=== PATIENT | female | born 1980 | race Caucasian/White ===

== ENCOUNTER 2018-01-22 03:56 | Inpatient (IN) | payer OTHER ==
[2018-01-22] MEDS ORDERED: SODIUM CHLORIDE 0.9% 500 ML INFUS.BAG IV ONE (04:49)
[2018-01-22] MEDS ORDERED: morphine CARPU-JECT 2 MG/1 ML DISP.SYRIN IVPUSH ONE (04:49)
[2018-01-22] MEDS ORDERED: ONDANSETRON 4 MG/2 ML VIAL IVPUSH ONE ×3 (04:52→17:45)
--- NOTE | 2018-01-22 04:57 | PDOC ---
History of Present Illness - General Chief Complaint: Pain Stated Complaint: RUQ pain & vomiting Time Seen by Provider: 01/22/18 04:27 History Source: Patient Exam Limitations: No Limitations - History of Present Illness Initial Comments: 01/22/18 04:53 Patient is a 37 year old female with h/o renal stone, cholithiasis, anemia c/o right sided abd pain x 9 days assoc with nausea, vomiting, fever, diarrhea. Symptoms started with epigastric pain 9 days ago, colicky in nature, then 6 days ago started to have right flank pain, with hematuria and dysuria starting 4 days ago. 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 States has been having bilious vomiting. was admitted to [facility] 2 months ago for the kidney stone, uti and was found to have gallstones. Surgery cholecytstecotmy offered at the time but was delayed due to the infection. Prior admission was 6 months ago for kidney stone. States no food contact and is compliant with a diet. PMD: Dr. Zimmerman PMHX: as above PSOCHX: neg cig, drug, etoh ALL: NKDA GENERAL/CONSTITUTIONAL: [No fever or chills. No weakness. No weight change.] HEAD, EYES, EARS, NOSE AND THROAT: [No change in vision. No ear pain or discharge. No sore throat.] CARDIOVASCULAR: [No chest pain or shortness of breath.] RESPIRATORY: [No cough, wheezing, or hemoptysis.] GASTROINTESTINAL: (+) nausea, vomiting, diarrhea (-) constipation. No rectal bleeding.] GENITOURINARY: (+) dysuria, frequency, or change in urination.] MUSCULOSKELETAL: [No joint or muscle swelling or pain. No neck or back pain.] SKIN AND BREASTS: [No rash or easy bruising.] NEUROLOGIC: [No headache, vertigo, loss of consciousness, or loss of sensation.] PSYCHIATRIC: [No depression or anxiety.] ENDOCRINE: [No increased thirst. No abnormal weight change.] HEMATOLOGIC/LYMPHATIC: [No anemia, easy bleeding, or history of blood clots.] ALLERGIC/IMMUNOLOGIC: [No hives or skin allergy. No latex allergy.] GENERAL: [The patient is awake, alert, and fully oriented, in moderate distress. ] HEAD: [Normal with no signs of trauma.] EYES: [Pupils equal, round and reactive to light, extraocular movements intact, sclera anicteric, conjunctiva clear.] ENT: [Ears normal, nares patent, oropharynx clear without exudates. Moist mucous membranes.] NECK: [Normal range of motion, supple without lymphadenopathy, JVD, or masses.] LUNGS: [Breath sounds equal, clear to auscultation bilaterally. No wheezes, and no crackles.] HEART: [Regular rate and rhythm, normal S1 and S2 without murmur, rub.] ABDOMEN: [Soft, (+) tenderness to the right side abd, (+) Wiggins's, (+) McBurney 's tenderness, (+) RCVAT, normoactive bowel sounds. No guarding, no rebound. No masses.] EXTREMITIES: [Normal range of motion, no edema. No clubbing or cyanosis. No cords, erythema, or tenderness.] NEUROLOGICAL: [Cranial nerves II through XII grossly intact. Normal speech, normal gait.] PSYCH: [Normal mood, normal affect.] SKIN: [Warm, Dry, normal turgor, no rashes or lesions noted.] Past History - Past Medical History Allergies/Adverse Reactions: Allergies Allergy/AdvReac Type Severity Reaction Status Date / Time No Known Allergies Allergy Verified 01/22/18 04:27 Home Medications: Ambulatory Orders NK [No Known Home Medication] 01/22/18 COPD: No Kidney Stones: Yes Other medical history: Cholelithiasis - Suicide/Smoking/Psychosocial Hx Smoking History: Never smoked Have you smoked in the past 12 months: No Information on smoking cessation initiated: No Hx Alcohol Use: No Drug/Substance Use Hx: No *Physical Exam - Vital Signs Last Vital Signs Temp Pulse Resp BP Pulse Ox 98.4 F 105 H 22 129/92 99 01/22/18 04:25 01/22/18 04:25 01/22/18 04:25 01/22/18 04:25 01/22/18 04:25 ED Treatment Course - LABORATORY CBC & Chemistry Diagram: 01/22/18 04:57 01/22/18 04:57 - RADIOLOGY Radiology Studies Ordered: Category Date Time Status ABDOMEN & PELVIS CT W/O CONTR [CT] Stat CT Scan 01/22/18 04:49 Ordered Medical Decision Making - Medical Decision Making 01/22/18 04:53 Patient is a 37 year old female with h/o renal stone, cholithiasis, anemia c/o right sided abd pain x 9 days assoc with nausea, vomiting, fever, diarrhea. Symptoms started with epigastric pain 9 days ago, colicky in nature, then 6 days ago started to have right flank pain, with hematuria and dysuria starting 4 days ago. R/O cholecystitis, pyelonephritis, renal colic, appendicitis, labs, IVF meds, pepcid, zofran, morphine ctap with IV con reassess 01/22/18 07:15 Paitent continues to be in pain given Morphine 4mg IV will order US of the GB noted to have a UTI will given Rocephin 1 gm IV Endorsed to ALEJO Baldwin *DC/Admit/Observation/Transfer Diagnosis at time of Disposition: Abdominal pain Qualifiers: Abdominal location: unspecified location Qualified Code(s): R10.9 - Unspecified abdominal pain UTI (urinary tract infection) Qualifiers: Urinary tract infection type: acute cystitis Hematuria presence: without hematuria Qualified Code(s): N30.00 - Acute cystitis without hematuria - Discharge Dispostion Condition at time of disposition: Fair - Referrals - Patient Instructions - Post Discharge Activity
[2018-01-22] MEDS ORDERED: ONDANSETRON 4 MG/2 ML VIAL ONE ×3 (05:02→17:11)
[2018-01-22 05:10] LABS: BASO % 0.5 % (0-2.0); EOS % 0.7 % (0-4.5); HEMATOCRIT 35.8 % (32.4-45.2); HEMOGLOBIN 12.1 GM/dL (10.7-15.3); LYMPH % 18.4 % (8-40); MCH 28.5 pg (25.7-33.7); MCHC 33.8 g/dl (32.0-36.0); MEAN CELL VOLUME 84.5 fl (80-96); MEAN PLT VOLUME 7.6 fl (7.5-11.1); MONO % 5.5 % (3.8-10.2); NEUT % 74.9 % (42.8-82.8); PLATELET COUNT 394 K/MM3 (134-434); RBC 4.23 M/mm3 (3.60-5.2); RDW 15.5 % (11.6-15.6); WHITE BLOOD COUNT 9.5 K/mm3 (4.0-10.0)
[2018-01-22] MEDS ORDERED: FAMOTIDINE 20 MG/50 ML IVPB 20 MG/50 ML MG IVPB ONE ×2 (05:10→05:22)
[2018-01-22] MEDS ORDERED: MORPHINE SULFATE 10 MG/1 ML *VIAL ONE ×2 (05:17→06:39)
[2018-01-22 05:29] LABS: ALBUMIN 4.3 g/dl (3.4-5.0); ALK PHOS 91 U/L (45-117); ANION GAP 9 (8-16); BILIRUBIN,TOTAL 0.9 mg/dL (0.2-1.0); BLOOD UREA NITROGEN 14 mg/dL (7-18); CALCIUM 9.8 mg/dL (8.5-10.1); CHLORIDE 102 mmol/L (98-107); CO2 24 mmol/L (21-32); CREATININE 0.9 mg/dL (0.55-1.02); GLUCOSE,RANDOM 99 mg/dL (74-106); POTASSIUM 3.8 mmol/L (3.5-5.1); SGOT/AST 15 U/L (15-37); SGPT/ALT 20 U/L (12-78); SODIUM 135 mmol/L (136-145); TOT PROT 8.3 g/dl (6.4-8.2)
[2018-01-22] MEDS ORDERED: morphine CARPU-JECT 4 MG/1 ML DISP.SYRIN IVPUSH ONE ×2 (06:38→11:12)
[2018-01-22 06:52] LABS: URINE APPEARANCE CLOUDY; URINE BILIRUBIN NEGATIVE (<2.0 mg/dL); URINE COLOR RED; URINE GLUCOSE (UA) NEGATIVE (NEGATIVE); URINE KETONE TRACE (NEGATIVE); URINE NITRITE NEGATIVE (NEGATIVE); URINE UROBILINOGEN NEGATIVE mg/dL (0.2-1.0)
[2018-01-22 07:03] LABS: URINE LEUK ESTERASE 2+ (NEGATIVE); URINE PROTEIN 2+ (NEGATIVE)
[2018-01-22 07:04] LABS: EPI CELLS MANY /HPF (FEW); URINE BACTERIA RARE /hpf (NONE SEEN); URINE MUCUS RARE
[2018-01-22] MEDS ORDERED: CEFTRIAXONE 1,000 MG in DEXTROSE 5%-WATER - 50 ML IVPB ONE (07:17)
--- NOTE | 2018-01-22 07:23 | PDOC ---
*Physical Exam - Vital Signs Last Vital Signs Temp Pulse Resp BP Pulse Ox 98.4 F 105 H 22 129/92 99 01/22/18 04:25 01/22/18 04:25 01/22/18 04:25 01/22/18 04:25 01/22/18 04:25 - Physical Exam General Appearance: Yes: Nourished, Appropriately Dressed, Mild Distress ( states her stomach hurts.) Respiratory/Chest: positive: Lungs Clear, Normal Breath Sounds. negative: Respiratory Distress, Rhonchi, Stridor, Wheezing Cardiovascular: positive: Regular Rhythm, Regular Rate, S1, S2 (present). 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, Fully Oriented, Alert, Normal Mood/ Affect, Normal Response, Motor Strength 11/04 ED Treatment Course - LABORATORY CBC & Chemistry Diagram: 01/22/18 04:57 01/22/18 04:57 - ADDITIONAL ORDERS Additional order review: Laboratory Results 01/22/18 01/22/18 01/22/18 06:34 05:54 04:57 Sodium 135 L Potassium 3.8 Chloride 102 Carbon Dioxide 24 Anion Gap 9 BUN 14 Creatinine 0.9 Creat Clearance w eGFR > 60 Random Glucose 99 Calcium 9.8 Total Bilirubin 0.9 AST 15 ALT 20 Alkaline Phosphatase 91 Total Protein 8.3 H Albumin 4.3 Serum , Qual Negative Urine Color Red Urine Appearance Cloudy Urine pH 6.0 Ur Specific [place] 1.006 Urine Protein 2+ H Urine Glucose (UA) Negative Urine Ketones Trace H Urine Blood 3+ H Urine Nitrite Negative Urine Bilirubin Negative Urine Urobilinogen Negative Ur Leukocyte Esterase 2+ H Urine WBC (Auto) 37 Urine RBC (Auto) 509 Ur Epithelial Cells Many Urine Bacteria Rare Urine Mucus Rare 01/22/18 04:57 RBC 4.23 MCV 84.5 MCHC 33.8 RDW 15.5 MPV 7.6 Neutrophils % 74.9 Lymphocytes % 18.4 Monocytes % 5.5 Eosinophils % 0.7 Basophils % 0.5 - Medications Given in the ED: ED Medications Discontinued Medications Generic Name Dose Route Start Last Admin Trade Name Freq PRN Reason Stop Dose Admin Famotidine/Sodium Chloride 20 mg in 50 mls @ 100 mls/hr 01/22/18 05:10 05:15 Pepcid 20 Mg Premixed Ivpb - IVPB 01/22/18 05:39 100 mls/hr ONCE ONE Administration Morphine Sulfate 2 mg 01/22/18 04:49 01/22/18 05:14 Morphine Injection - IVPUSH 01/22/18 04:50 2 mg ONCE ONE Administration Morphine Sulfate 4 mg 01/22/18 06:38 01/22/18 06:50 Morphine Injection - IVPUSH 01/22/18 06:39 4 mg ONCE ONE Administration Ondansetron HCl 4 mg 01/22/18 04:52 01/22/18 04:45 Zofran Injection IVPUSH 01/22/18 04:53 4 mg ONCE ONE Administration Sodium Chloride 1,000 ml 01/22/18 04:49 01/22/18 04:58 Normal Saline - IV 01/22/18 04:50 1,000 ml ONCE ONE Administration Medical Decision Making - Medical Decision Making 01/22/18 07:22 Pt received at sign out from ALEJO Hernández. Pt currently in CT scan. Will evaluate when patient returns. 01/22/18 12:25 Patient evaluated for her right upper quadrant/epigastric pain. Her CT scan shows no evidence of kidney stones at this time. Ultrasound shows multiple stones however without evidence of cholecystitis. Patient currently with intractable abdominal pain. Patient received 2 doses of morphine as well as Toradol without relief of her symptoms. She is still vomiting in the emergency department. Pt. also with UTI, 2+ leukocytes with 35 WBCs as well as blood. Consult with Dr. Corbin for surgery. Agrees that patient needs to have her gallbladder taken out however she needs to be treated for her UTI first. She received 1 dose of Rocephin in the emergency department. Consulted with Dr. Garces for admission. Will accept the patient for IV antibiotics pending surgery. Consult placed to Dr. Adames. *DC/Admit/Observation/Transfer Diagnosis at time of Disposition: Biliary colic UTI (urinary tract infection) Qualifiers: Urinary tract infection type: acute cystitis Hematuria presence: without hematuria Qualified Code(s): N30.00 - Acute cystitis without hematuria - Discharge Dispostion Condition at time of disposition: Fair Decision to Admit order: Yes - Referrals - Patient Instructions - Post Discharge Activity
[2018-01-22] MEDS ORDERED: CEFTRIAXONE 1 GM/50 ML BAG ONE (07:56)
[2018-01-22] MEDS ORDERED: KETOROLAC TROMETHAMINE 30 MG/1 ML VIAL ONE (08:09)
[2018-01-22] MEDS ORDERED: KETOROLAC TROMETHAMINE 30 MG/1 ML VIAL IVPUSH ONE (08:14)
[2018-01-22] MEDS ORDERED: SODIUM CHLORIDE 1,000 ML IV STA (11:11)
[2018-01-22] MEDS ORDERED: METOCLOPRAMIDE HCL INJECTION 10 MG/2 ML VIAL IVPB ONE (11:11)
--- NOTE | 2018-01-22 11:54 | CONSULT ---
Consult Consult Specialty:: General Surgery Referred by:: Erika Casanova- ED Reason for Consultation:: Abdominal Pain - History of Present Illness Chief Complaint: Abdominal Pain History of Present Illness: 37yo female PMH obesity, cholelithiasis, history of nephrolithiasis and UTI requiring hospitalization presented this morning with complaints of right upper quadrant abdominal pain for 3 days. She reports that the pain is crampy, after meals, she has has episodes of emesis and diarrhea. She also reports qualitiative fevers at home. She recognized some burning with urination for the past several days as well. She was previously seen at [facility] during a previous episode of billiary colic. She has a know history of cholelithiasis and was offered surgery earlier this year. She had cholelithiasis +dasilva on RUQ sonogram, We were asked to assess. - History Source History Provided By: Patient, Medical Record Limitations to Obtaining History: No Limitations - Past Medical History Hepatobiliary: Yes: Cholelithiasis Renal/: Yes: Renal Calculi, UTI ...: No Additional Medical History: obesity - Alcohol/Substance Use Hx Alcohol Use: No History of Substance Use: reports: None - Smoking History Smoking history: Never smoked Have you smoked in the past 12 months: No - Social History Place of : [facility] History of Recent Travel: Yes Home Medications - Allergies Allergies/Adverse Reactions: Allergies Allergy/AdvReac Type Severity Reaction Status Date / Time No Known Allergies Allergy Verified 01/22/18 04:27 - Home Medications Home Medications: Ambulatory Orders NK [No Known Home Medication] 01/22/18 Review of Systems - Review of Systems Constitutional: reports: Fever. denies: Chills Eyes: denies: Blurred Vision, Recent Change in Vision HENT: denies: Difficult Swallowing, Throat Pain Neck: reports: Pain on Movement. denies: Tenderness Cardiovascular: denies: Chest Pain, Palpitations Respiratory: denies: Cough, SOB Gastrointestinal: reports: Abdominal Pain, Diarrhea, Indigestion, Vomiting Genitourinary: reports: Burning, Dysuria. denies: Discharge, Flank Pain Breasts: reports: No Symptoms Reported. denies: Pain Integumentary: denies: Erythema, Incision, Lesions Neurological: denies: Confusion, Dizziness, Seizure, Syncope Endocrine: denies: Unexplained Weight Gain, Unexplained Weight Loss Hematology/Lymphatic: denies: Easily Bruised, Excessive Bleeding Psychiatric: denies: Anxiety, Depression Physical Exam Vital Signs: Vital Signs Temperature 98.0 F 01/22/18 09:01 Pulse Rate 98 H 01/22/18 09:01 Respiratory Rate 18 01/22/18 09:01 Blood Pressure 114/76 01/22/18 09:01 O2 Sat by Pulse Oximetry (%) 100 01/22/18 09:01 Vital Signs Period Temp Pulse Resp BP Sys/Jorgensen Pulse Ox Last 24 Hr 98.0 F-98.4 F 98-105 18- 114-129/76-92 99-100 Constitutional: Yes: Well Nourished, No Distress, Calm, Obese Eyes: Yes: Conjunctiva Clear, EOM Intact HENT: Yes: Atraumatic, Normocephalic Neck: Yes: Supple, Trachea Midline Cardiovascular: Yes: Regular Rate and Rhythm, S1, S2 Respiratory: Yes: Regular, CTA Bilaterally. No: Rales, Rhonchi Gastrointestinal: Yes: Normal Bowel Sounds, Soft, Abdomen, Obese, Tenderness ( RUQ,), Tenderness, Epigastrium. No: Ascites, Distention, Tenderness, Rebound, Vomiting ...Rectal Exam: Yes: Deferred Renal/: No: CVA Tenderness - Left, CVA Tenderness - Right Musculoskeletal: No: Muscle Pain, Muscle Weakness Extremities: No: Cool, Cyanosis Edema: No Integumentary: No: Incision, Jaundice Neurological: Yes: Alert, Oriented Psychiatric: Yes: Alert, Oriented Labs: CBC, BMP 01/22/18 04:57 01/22/18 04:57 Imaging - Results Cat Scan: Report Reviewed (no acute findings, cholelithiasis), Image Reviewed Ultrasound: Report Reviewed (CBD 0.25cm, GB wall 1.39mmm cholelithiasis), Image Reviewed Problem List - Problems (1) Recurrent biliary colic Assessment/Plan: 37yo female PMH obesity, cholelithiasis, history of nephrolithiasis presents with symptomatic UTI and recurrent billiary colic. We discussed proceeding with surgery once the UTI was adequately treated for 3 days. She agrees with this plan. We will discuss risksm benefits and alternatives and obtain informed consent in the coming days. NPO and IVF hydration ID consult - Erika Adames IV antibiotics adequate analgesia Consider GI evaluation Plan for laparoscopic cholecystectomy (tentatively 01/25) will follow Thank you for the opportunity to participate in the care of this patient. Code(s): K80.50 - CALCULUS OF BILE DUCT W/O CHOLANGITIS OR CHOLECYST W/O OBST (2) Abdominal pain in female patient Code(s): R10.9 - UNSPECIFIED ABDOMINAL PAIN (3) UTI (urinary tract infection) Code(s): N39.0 - URINARY TRACT INFECTION, SITE NOT SPECIFIED Qualifiers: Urinary tract infection type: acute cystitis Hematuria presence: without hematuria Qualified Code(s): N30.00 - Acute cystitis without hematuria (4) Obesity (BMI 30.0-34.9) Code(s): E66.9 - OBESITY, UNSPECIFIED (5) History of nephrolithiasis Code(s): Z87.442 - PERSONAL HISTORY OF URINARY CALCULI
[2018-01-22] MEDS ORDERED: morphine SULFATE 4 MG/ML VIAL ONE (12:32)
[2018-01-22] MEDS ORDERED: METOCLOPRAMIDE HCL INJECTION 10 MG/2 ML VIAL ONE (12:32)
--- NOTE | 2018-01-22 16:27 | CON.ID ---
Consult Consult Specialty:: infectious diseases Reason for Consultation:: uti,choleycystitis - History of Present Illness Chief Complaint: abd pain,burning in urine,multiple utis History of Present Illness: 37yo female PMH obesity, cholelithiasis, history of nephrolithiasis and UTI requiring hospitalization presented with complaints of right upper quadrant abdominal pain for 3 days. She reports that the pain is crampy, after meals, she has has episodes of emesis and diarrhea. patient mentions that this type of pain she had also last year.and was seen and [facility] not [facility] also she mentions that she has ahd multiple episodes of uti and also has burning in the urine now patient now is having ruq pain as well as suprapubic pain and it seems she had murphys sign positive patient says she had subjective fevers - History Source History Provided By: Patient Limitations to Obtaining History: No Limitations - Past Medical History Hepatobiliary: Yes: Cholelithiasis Renal/: Yes: Renal Calculi, UTI ...: No Additional Medical History: obesity - Alcohol/Substance Use Hx Alcohol Use: No History of Substance Use: reports: None - Smoking History Smoking history: Never smoked Have you smoked in the past 12 months: No - Social History History of Recent Travel: Yes Home Medications - Allergies Allergies/Adverse Reactions: Allergies Allergy/AdvReac Type Severity Reaction Status Date / Time No Known Allergies Allergy Verified 01/22/18 04:27 - Home Medications Home Medications: Ambulatory Orders NK [No Known Home Medication] 01/22/18 Review of Systems - Review of Systems Constitutional: reports: No Symptoms Eyes: reports: No Symptoms HENT: reports: No Symptoms Neck: reports: No Symptoms Cardiovascular: reports: No Symptoms Respiratory: reports: No Symptoms Gastrointestinal: reports: Abdominal Pain Genitourinary: reports: Burning, Dysuria Musculoskeletal: reports: No Symptoms Integumentary: reports: No Symptoms Neurological: reports: No Symptoms Endocrine: reports: No Symptoms Hematology/Lymphatic: reports: No Symptoms Psychiatric: reports: No Symptoms Physical Exam Vital Signs: Vital Signs Temperature 98.2 F 01/22/18 15:21 Pulse Rate 77 01/22/18 15:21 Respiratory Rate 20 01/22/18 15:21 Blood Pressure 116/59 01/22/18 15:21 O2 Sat by Pulse Oximetry (%) 100 01/22/18 09:01 Constitutional: Yes: Well Nourished, Calm, Mild Distress Neck: Yes: Supple, Trachea Midline Cardiovascular: Yes: Regular Rate and Rhythm Respiratory: Yes: Regular, CTA Bilaterally Gastrointestinal: Yes: Normal Bowel Sounds, Soft, Other (ruq tenderness) Musculoskeletal: Yes: WNL Extremities: Yes: WNL Neurological: Yes: Alert, Oriented Psychiatric: Yes: Alert, Oriented Labs: CBC, BMP 01/22/18 04:57 01/22/18 04:57 Imaging - Results Cat Scan: Report Reviewed, Image Reviewed Ultrasound: Report Reviewed, Image Reviewed Assessment/Plan Problem List - Problems (1) Recurrent biliary colic Thank you for the opportunity to participate in the care of this patient. Code(s): K80.50 - CALCULUS OF BILE DUCT W/O CHOLANGITIS OR CHOLECYST W/O OBST (2) Abdominal pain in female patient Code(s): R10.9 - UNSPECIFIED ABDOMINAL PAIN (3) UTI (urinary tract infection) Code(s): N39.0 - URINARY TRACT INFECTION, SITE NOT SPECIFIED Qualifiers: Urinary tract infection type: acute cystitis Hematuria presence: without hematuria Qualified Code(s): N30.00 - Acute cystitis without hematuria (4) Obesity (BMI 30.0-34.9) Code(s): E66.9 - OBESITY, UNSPECIFIED (5) History of nephrolithiasis Code(s): Z87.442 - PERSONAL HISTORY OF URINARY CALCULI plan will start patient on zosyn await for cx reports rest as per the team patient stable
[2018-01-22] MEDS ORDERED: MORPHINE SULFATE 2 MG/ML VIAL ONE (17:11)
[2018-01-22] MEDS ORDERED: MORPHINE SULFATE 2 MG/ML VIAL IVPUSH ONE (17:45)
[2018-01-22] MEDS: PIPERACILLIN/TAZOB 3.375 GM 3.375 GM in DEXTROSE 5%-WATER - 50 ML IVPB SCH (17:50)
[2018-01-22 19:07] VITALS: BMI 31.2
--- NOTE | 2018-01-22 19:24 | HP ---
Admitting History and Physical - Primary Care Physician PCP: Zoe Garces - Admission History of Present Illness: 37 year old female with h/o renal stone, cholithiasis, anemia c/o right sided abd pain x 9 days assoc with nausea, vomiting, fever, diarrhea. Symptoms started with epigastric pain 9 days ago, colicky in nature, then 6 days ago started to have right flank pain, with hematuria and dysuria starting 4 days ago. 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 States has been having bilious vomiting. States was admitted to [facility] 2 months ago for the kidney stone, uti and was found to have gallstones. Surgery cholecytstecotmy offered at the time but was delayed due to the infection. Prior admission was 6 months ago for kidney stone. States no food contact and is compliant with a diet. - Past Medical History Hepatobiliary: Yes: Cholelithiasis Renal/: Yes: Renal Calculi, UTI ...LMP: 01/09/18 ...: No - Smoking History Smoking history: Never smoked Have you smoked in the past 12 months: No - Alcohol/Substance Use Hx Alcohol Use: No History of Substance Use: reports: None - Social History History of Recent Travel: Yes Home Medications - Allergies Allergies/Adverse Reactions: Allergies Allergy/AdvReac Type Severity Reaction Status Date / Time No Known Allergies Allergy Verified 01/22/18 04:27 - Home Medications Home Medications: Ambulatory Orders NK [No Known Home Medication] 01/22/18 Review of Systems - Review of Systems Gastrointestinal: reports: Other (ruq pain) Physical Examination Vital Signs: Vital Signs Temperature 97.6 F 01/22/18 19:00 Pulse Rate 105 H 01/22/18 19:00 Respiratory Rate 18 01/22/18 19:00 Blood Pressure 112/66 01/22/18 19:00 O2 Sat by Pulse Oximetry (%) 100 01/22/18 09:01 Constitutional: Yes: No Distress HENT: Yes: Atraumatic Neck: Yes: Supple Cardiovascular: Yes: Regular Rate and Rhythm Respiratory: Yes: CTA Bilaterally Gastrointestinal: Yes: Tenderness (ruq) Extremities: Yes: WNL Neurological: Yes: Alert, Oriented Labs: CBC, BMP 01/22/18 04:57 01/22/18 04:57 Imaging - Results Cat Scan: Report Reviewed Problem List - Problems (1) Cholelithiasis Assessment/Plan: us and ct done no acute arlyn Code(s): K80.20 - CALCULUS OF GALLBLADDER W/O CHOLECYSTITIS W/O OBSTRUCTION (2) Recurrent biliary colic Assessment/Plan: prn pain meds Code(s): K80.50 - CALCULUS OF BILE DUCT W/O CHOLANGITIS OR CHOLECYST W/O OBST (3) UTI (urinary tract infection) Assessment/Plan: on iv abx ucx Code(s): N39.0 - URINARY TRACT INFECTION, SITE NOT SPECIFIED Qualifiers: Urinary tract infection type: acute cystitis Hematuria presence: without hematuria Qualified Code(s): N30.00 - Acute cystitis without hematuria Assessment/Plan Laboratory Tests 01/22/18 01/22/18 01/22/18 04:57 04:57 05:54 WBC 9.5 RBC 4.23 Hgb 12.1 Hct 35.8 MCV 84.5 MCH 28.5 MCHC 33.8 RDW 15.5 Plt Count 394 MPV 7.6 Absolute Neuts (auto) 7.1 Neutrophils % 74.9 Lymphocytes % 18.4 Monocytes % 5.5 Eosinophils % 0.7 Basophils % 0.5 Nucleated RBC % 0 Sodium 135 L Potassium 3.8 Chloride 102 Carbon Dioxide 24 Anion Gap 9 BUN 14 Creatinine 0.9 Creat Clearance w eGFR > 60 Random Glucose 99 Calcium 9.8 Total Bilirubin 0.9 AST 15 ALT 20 Alkaline Phosphatase 91 Total Protein 8.3 H Albumin 4.3 Serum , Qual Negative Urine Color Urine Appearance Urine pH Ur Specific [place] Urine Protein Urine Glucose (UA) Urine Ketones Urine Blood Urine Nitrite Urine Bilirubin Urine Urobilinogen Ur Leukocyte Esterase Urine WBC (Auto) Urine RBC (Auto) Ur Epithelial Cells Urine Bacteria Urine Mucus 01/22/18 06:34 WBC RBC Hgb Hct MCV MCH MCHC RDW Plt Count MPV Absolute Neuts (auto) Neutrophils % Lymphocytes % Monocytes % Eosinophils % Basophils % Nucleated RBC % Sodium Potassium Chloride Carbon Dioxide Anion Gap BUN Creatinine Creat Clearance w eGFR Random Glucose Calcium Total Bilirubin AST ALT Alkaline Phosphatase Total Protein Albumin Serum , Qual Urine Color Red Urine Appearance Cloudy Urine pH 6.0 Ur Specific [place] 1.006 Urine Protein 2+ H Urine Glucose (UA) Negative Urine Ketones Trace H Urine Blood 3+ H Urine Nitrite Negative Urine Bilirubin Negative Urine Urobilinogen Negative Ur Leukocyte Esterase 2+ H Urine WBC (Auto) 37 Urine RBC (Auto) 509 Ur Epithelial Cells Many Urine Bacteria Rare Urine Mucus Rare Active Medications Generic Name Dose Route Start Last Admin Trade Name Sofi PRN Reason Stop Dose Admin Piperacillin Sod/Tazobactam 50 mls @ 100 mls/hr 01/22/18 18:00 01/22/18 17:50 Sod 3.375 gm/ Dextrose IVPB 100 mls/hr Q8H-IV JUDITH Administration Protocol Active Medications Generic Name Dose Route Start Last Admin Trade Name Sofi PRN Reason Stop Dose Admin Acetaminophen 650 mg 01/23/18 16:16 01/23/18 16:50 Tylenol - PO 650 mg Q6H PRN Administration PAIN LEVEL 1-5 Piperacillin Sod/Tazobactam 50 mls @ 100 mls/hr 01/22/18 18:00 01/23/18 18:27 Sod 3.375 gm/ Dextrose IVPB 100 mls/hr Q8H-IV JUDITH Administration Protocol Sodium Chloride 1,000 mls @ 75 mls/hr 01/22/18 19:30 01/23/18 08:33 Normal Saline - IV 75 mls/hr ASDIR JUDITH Administration Morphine Sulfate 2 mg 01/22/18 19:27 01/23/18 15:04 Morphine Sulfate IVPUSH 2 mg Q4H PRN Administration PAIN LEVEL 4 - 6 Ondansetron HCl 4 mg 01/22/18 19:27 01/23/18 15:06 Zofran Injection IVPB 4 mg Q4H PRN Administration NAUSEA AND/OR VOMITING
[2018-01-22] MEDS: ONDANSETRON 4 MG/2 ML VIAL IVPB PRN (20:33)
[2018-01-22] MEDS: SODIUM CHLORIDE 1,000 ML IV SCH (20:33)
[2018-01-22] MEDS: morphine SULFATE 4 MG/ML VIAL IVPUSH PRN (20:33)
[2018-01-23] MEDS ORDERED: PIPERACILLIN/TAZOBACTAM 3.375 GM VIAL IVPB ONE ×3 (02:27→18:09)
[2018-01-23] MEDS ORDERED: DEXTROSE 5%-WATER - 50 ML IVPB ONE ×3 (02:27→18:09)
[2018-01-23] MEDS: PIPERACILLIN/TAZOB 3.375 GM 3.375 GM in DEXTROSE 5%-WATER - 50 ML IVPB SCH ×3 (02:36→18:27)
[2018-01-23] MEDS: morphine SULFATE 4 MG/ML VIAL IVPUSH PRN ×4 (02:55→19:25)
[2018-01-23] MEDS: ONDANSETRON 4 MG/2 ML VIAL IVPB PRN ×3 (08:25→19:26)
--- NOTE | 2018-01-23 08:28 | PN ---
Progress Note, Physician Chief Complaint: abdominal pain History of Present Illness: 37yo female PMH obesity, cholelithiasis, history of nephrolithiasis and UTI requiring hospitalization presented this morning with complaints of right upper quadrant abdominal pain for 3 days. Her abdominal pain is - Current Medication List Current Medications: Active Medications Piperacillin Sod/Tazobactam (Sod 3.375 gm/ Dextrose) 50 mls @ 100 mls/hr IVPB Q8H-IV JUDITH; Protocol Last Admin: 01/23/18 02:36 Dose: 100 mls/hr Sodium Chloride (Normal Saline -) 1,000 mls @ 75 mls/hr IV ASDIR JUDITH Last Admin: 01/22/18 20:33 Dose: 75 mls/hr Morphine Sulfate (Morphine Sulfate) 2 mg IVPUSH Q4H PRN PRN Reason: PAIN LEVEL 4 - 6 Last Admin: 01/23/18 02:55 Dose: 2 mg Ondansetron HCl (Zofran Injection) 4 mg IVPB Q4H PRN PRN Reason: NAUSEA AND/OR VOMITING Last Admin: 01/22/18 20:33 Dose: 4 mg - Objective Vital Signs: Vital Signs Temperature 98.2 F 01/23/18 06:00 Pulse Rate 74 01/23/18 06:00 Respiratory Rate 18 01/23/18 06:00 Blood Pressure 142/77 01/23/18 06:00 O2 Sat by Pulse Oximetry (%) 100 01/22/18 22:13 Vital Signs Period Temp Pulse Resp BP Sys/Jorgensen Pulse Ox Last 24 Hr 97.6 F-98.6 F 63-105 18-20 112-142/58-77 100-100 Constitutional: Yes: Well Nourished, No Distress, Calm, Obese Eyes: Yes: Conjunctiva Clear, EOM Intact HENT: Yes: Atraumatic, Normocephalic Neck: Yes: Supple, Trachea Midline Cardiovascular: Yes: Regular Rate and Rhythm, S1, S2 Respiratory: Yes: Regular, CTA Bilaterally Gastrointestinal: Yes: Normal Bowel Sounds, Soft, Abdomen, Obese, Tenderness ( minimal RUQ tenderness, - dasilva's) ...Rectal Exam: Yes: Deferred Genitourinary: No: CVA Tenderness - Left, CVA Tenderness - Right Musculoskeletal: No: Muscle Pain, Muscle Weakness Extremities: No: Cool, Cyanosis Integumentary: No: Jaundice Neurological: Yes: Alert, Oriented Psychiatric: Yes: Alert, Oriented Labs: CBC, BMP 01/22/18 04:57 01/22/18 04:57 Problem List - Problems (1) Recurrent biliary colic Assessment/Plan: 37yo female PMH obesity, cholelithiasis, history of nephrolithiasis presents with symptomatic UTI and recurrent billiary colic. We discussed proceeding with surgery once the UTI was adequately treated for 3 days. She agrees with this plan. We discussed risks, benefits and alternatives and obtain informed consent. NPO and IVF hydration IV antibiotics Plan for laparoscopic cholecystectomy (tentatively 01/25 @ 330p) when cleared by Dr. Adames Discussed with patient risks, benefits and alternatives of laparoscopic possible open cholecystectomy, including but not limited to bleeding, infection , injury to adjacent structures, leak or injury, intraabdominal abscess, need for further procedures, ; alternatives include antibiotics, delayed or no surgery - risks of this include failure of nonoperative therapy, perforation, sepsis, recurrence, . Patient desires to proceed with operation - will take to OR for above. Informed consent signed for same. Code(s): K80.50 - CALCULUS OF BILE DUCT W/O CHOLANGITIS OR CHOLECYST W/O OBST (2) Abdominal pain in female patient Code(s): R10.9 - UNSPECIFIED ABDOMINAL PAIN (3) UTI (urinary tract infection) Code(s): N39.0 - URINARY TRACT INFECTION, SITE NOT SPECIFIED Qualifiers: Urinary tract infection type: acute cystitis Hematuria presence: without hematuria Qualified Code(s): N30.00 - Acute cystitis without hematuria (4) Obesity (BMI 30.0-34.9) Code(s): E66.9 - OBESITY, UNSPECIFIED (5) History of nephrolithiasis Code(s): Z87.442 - PERSONAL HISTORY OF URINARY CALCULI
[2018-01-23] MEDS: SODIUM CHLORIDE 1,000 ML IV SCH (08:33)
--- NOTE | 2018-01-23 12:26 | PN ---
Progress Note, Physician History of Present Illness: patient stable no new issues still with abd discomfort - Current Medication List Current Medications: Active Medications Piperacillin Sod/Tazobactam (Sod 3.375 gm/ Dextrose) 50 mls @ 100 mls/hr IVPB Q8H-IV JUDITH; Protocol Last Admin: 01/23/18 11:12 Dose: 100 mls/hr Sodium Chloride (Normal Saline -) 1,000 mls @ 75 mls/hr IV ASDIR JUDITH Last Admin: 01/23/18 08:33 Dose: 75 mls/hr Morphine Sulfate (Morphine Sulfate) 2 mg IVPUSH Q4H PRN PRN Reason: PAIN LEVEL 4 - 6 Last Admin: 01/23/18 08:32 Dose: 2 mg Ondansetron HCl (Zofran Injection) 4 mg IVPB Q4H PRN PRN Reason: NAUSEA AND/OR VOMITING Last Admin: 01/23/18 08:25 Dose: 4 mg - Objective Vital Signs: Vital Signs Temperature 98.1 F 01/23/18 09:00 Pulse Rate 68 01/23/18 09:00 Respiratory Rate 18 01/23/18 09:00 Blood Pressure 122/95 01/23/18 09:00 O2 Sat by Pulse Oximetry (%) 100 01/22/18 22:13 Constitutional: Yes: No Distress, Calm Cardiovascular: Yes: Regular Rate and Rhythm Respiratory: Yes: Regular, CTA Bilaterally Gastrointestinal: Yes: Normal Bowel Sounds, Soft Musculoskeletal: Yes: WNL Extremities: Yes: WNL Neurological: Yes: Alert, Oriented Psychiatric: Yes: Alert, Oriented Labs: CBC, BMP 01/22/18 04:57 01/22/18 04:57 Assessment/Plan Problem List - Problems (1) Recurrent biliary colic Thank you for the opportunity to participate in the care of this patient. Code(s): K80.50 - CALCULUS OF BILE DUCT W/O CHOLANGITIS OR CHOLECYST W/O OBST (2) Abdominal pain in female patient Code(s): R10.9 - UNSPECIFIED ABDOMINAL PAIN (3) UTI (urinary tract infection) Code(s): N39.0 - URINARY TRACT INFECTION, SITE NOT SPECIFIED Qualifiers: Urinary tract infection type: acute cystitis Hematuria presence: without hematuria Qualified Code(s): N30.00 - Acute cystitis without hematuria (4) Obesity (BMI 30.0-34.9) Code(s): E66.9 - OBESITY, UNSPECIFIED (5) History of nephrolithiasis Code(s): Z87.442 - PERSONAL HISTORY OF URINARY CALCULI plan continue abx will d.w surgery cx report noted rest as per the team
[2018-01-23 14:14] VITALS: TEMP 97.8
[2018-01-23] MEDS ORDERED: ACETAMINOPHEN 325 MG TABLET (FP) PO PRN (16:16)
--- NOTE | 2018-01-23 16:47 | PN ---
Progress Note, Physician - Current Medication List Current Medications: Active Medications Acetaminophen (Tylenol -) 650 mg PO Q6H PRN PRN Reason: PAIN LEVEL 1-5 Piperacillin Sod/Tazobactam (Sod 3.375 gm/ Dextrose) 50 mls @ 100 mls/hr IVPB Q8H-IV JUDITH; Protocol Last Admin: 01/23/18 11:12 Dose: 100 mls/hr Sodium Chloride (Normal Saline -) 1,000 mls @ 75 mls/hr IV ASDIR JUDITH Last Admin: 01/23/18 08:33 Dose: 75 mls/hr Morphine Sulfate (Morphine Sulfate) 2 mg IVPUSH Q4H PRN PRN Reason: PAIN LEVEL 4 - 6 Last Admin: 01/23/18 15:04 Dose: 2 mg Ondansetron HCl (Zofran Injection) 4 mg IVPB Q4H PRN PRN Reason: NAUSEA AND/OR VOMITING Last Admin: 01/23/18 15:06 Dose: 4 mg - Objective Vital Signs: Vital Signs Temperature 97.8 F 01/23/18 14:12 Pulse Rate 61 01/23/18 14:12 Respiratory Rate 18 01/23/18 14:12 Blood Pressure 125/61 01/23/18 14:12 O2 Sat by Pulse Oximetry (%) 100 01/22/18 22:13 Constitutional: Yes: No Distress HENT: Yes: Atraumatic Neck: Yes: Supple Cardiovascular: Yes: Regular Rate and Rhythm Respiratory: Yes: CTA Bilaterally Gastrointestinal: Yes: Normal Bowel Sounds Extremities: Yes: WNL Neurological: Yes: Alert, Oriented Labs: CBC, BMP 01/22/18 04:57 01/22/18 04:57 Problem List - Problems (1) Cholelithiasis Assessment/Plan: us and ct done no acute arlyn Code(s): K80.20 - CALCULUS OF GALLBLADDER W/O CHOLECYSTITIS W/O OBSTRUCTION (2) Recurrent biliary colic Assessment/Plan: prn pain meds Code(s): K80.50 - CALCULUS OF BILE DUCT W/O CHOLANGITIS OR CHOLECYST W/O OBST (3) UTI (urinary tract infection) Assessment/Plan: on iv abx ucx...negative Code(s): N39.0 - URINARY TRACT INFECTION, SITE NOT SPECIFIED Qualifiers: Urinary tract infection type: acute cystitis Hematuria presence: without hematuria Qualified Code(s): N30.00 - Acute cystitis without hematuria
[2018-01-23 16:50] VITALS: BP 125/69; PULSE 68
== END 2018-01-24 00:33 | disposition left against medical advice (07) ==
LOC: JER 03:56 → JERBED 11:58 → J8W 18:24
PROVIDERS: ADMIT Internal Medicine; ATTEND Internal Medicine
DX: K80.50 Calculus of bile duct without cholangitis or cholecystitis without obstruction (principal); N39.0 Urinary tract infection, site not specified; E66.8 Other obesity; Z68.30 Body mass index [BMI] 30.0-30.9, adult; Z87.442 Personal history of urinary calculi
CPT/HCPCS: 36415; 74177-TC; 76700-TC; 80053; 81003; 81015; 84703; 85025; 87086; 99285-25; J7030

== ENCOUNTER 2018-03-13 20:16 | Observation (INO) | payer OTHER ==
[2018-03-13] MEDS ORDERED: KETOROLAC TROMETHAMINE 30 MG/1 ML VIAL IVPUSH ONE (20:32)
[2018-03-13] MEDS ORDERED: SODIUM CHLORIDE 1,000 ML IV STA (20:32)
[2018-03-13] MEDS ORDERED: morphine CARPU-JECT 4 MG/1 ML DISP.SYRIN IVPUSH ONE (20:34)
--- NOTE | 2018-03-13 20:34 | PDOC ---
Rapid Medical Evaluation Chief Complaint: Pain, Acute Time Seen by Provider: 03/13/18 20:29 Medical Evaluation: Allergies Allergy/AdvReac Type Severity Reaction Status Date / Time Fish Containing Products Allergy Verified 02/28/18 12:02 03/13/18 20:30 37 year old history of kidney stones diagnosed with obstructed stone to the right side 5 days ago. fever, dysuria. completed a course of oral antibiotics. fever of 103 this afternoon at home. PE: patient alert ox3 A; kidney stones P; cbc cmp renal ultrasound ua urine culture blood culture 03/13/18 20:34 Discharge Disposition - Diagnosis Renal colic on right side - Referrals - Patient Instructions - Post Discharge Activity
[2018-03-13] MEDS ORDERED: ONDANSETRON 4 MG/2 ML VIAL IVPUSH ONE (20:45)
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
[2018-03-13] MEDS ORDERED: morphine SULFATE 4 MG/ML VIAL ONE (21:42)
[2018-03-13] MEDS ORDERED: KETOROLAC TROMETHAMINE 30 MG/1 ML VIAL ONE (21:43)
[2018-03-13] MEDS ORDERED: ONDANSETRON 4 MG/2 ML VIAL ONE (21:43)
[2018-03-13 22:18] LABS: BASO % 0.8 % (0-2.0); EOS % 3.7 % (0-4.5); HEMATOCRIT 32.9 % (32.4-45.2); LYMPH % 19.1 % (8-40); MCH 27.6 pg (25.7-33.7); MCHC 33.3 g/dl (32.0-36.0); MEAN CELL VOLUME 83.1 fl (80-96); MEAN PLT VOLUME 7.3 fl (7.5-11.1); MONO % 5.4 % (3.8-10.2); PLATELET COUNT 323 K/MM3 (134-434); RBC 3.96 M/mm3 (3.60-5.2); RDW 15.1 % (11.6-15.6); WHITE BLOOD COUNT 8.2 K/mm3 (4.0-10.0)
[2018-03-13 22:19] LABS: URINE APPEARANCE CLOUDY; URINE BILIRUBIN NEGATIVE (<2.0 mg/dL); URINE COLOR RED; URINE GLUCOSE (UA) NEGATIVE (NEGATIVE); URINE KETONE TRACE (NEGATIVE); URINE LEUK ESTERASE NEGATIVE (NEGATIVE); URINE NITRITE NEGATIVE (NEGATIVE); URINE PROTEIN 2+ (NEGATIVE); URINE UROBILINOGEN NEGATIVE mg/dL (0.2-1.0)
[2018-03-13 22:22] LABS: EPI CELLS MANY /HPF (FEW)
[2018-03-13 22:42] LABS: ALK PHOS 308 U/L (45-117); ANION GAP 9 MMOL/L (8-16); BILIRUBIN,TOTAL 0.4 mg/dL (0.2-1.0); BLOOD UREA NITROGEN 10 mg/dL (7-18); CALCIUM 9.6 mg/dL (8.5-10.1); CHLORIDE 106 mmol/L (98-107); CO2 23 mmol/L (21-32); CREATININE 0.9 mg/dL (0.55-1.02); GLUCOSE,RANDOM 92 mg/dL (74-106); POTASSIUM 4.2 mmol/L (3.5-5.1); SGOT/AST 42 U/L (15-37); SGPT/ALT 174 U/L (12-78); SODIUM 138 mmol/L (136-145); TOT PROT 8.2 g/dl (6.4-8.2)
[2018-03-13] MEDS ORDERED: CEFTRIAXONE 1 GM in DEXTROSE 5%-WATER - 50 ML IVPB ONE (23:25)
[2018-03-13] MEDS ORDERED: ACETAMINOPHEN INJECTION 100 ML IVPB ONE (23:27)
[2018-03-13] MEDS ORDERED: ACETAMINOPHEN 1000 MG/100 ML VIAL (NON FORMULARY) IVPB ONE (23:27)
[2018-03-13] MEDS ORDERED: CEFTRIAXONE 1 GM/50 ML BAG ONE (23:28)
--- NOTE | 2018-03-14 00:37 | PN ---
Teaching Attending Note Name of Resident: Jose Alfredo Childs ATTENDING PHYSICIAN STATEMENT I saw and evaluated the patient. I reviewed the resident's note and discussed the case with the resident. I agree with the resident's findings and plan as documented. SUBJECTIVE: Patient is a 37 year old woman with a significant past medical history of Ureterolithiasis (since age 8 years) requiring lithotripsy and stenting, UTI, cholelithiasis, who presents to the ER with worsening right flank pain and subjective fever. As per patient, she was recently seen in an [facility] and diagnosed with multiple kidney stones. She reports receiving IV antibiotics and was discharged home. She describes her flank pain as 10/10 without any worsening or alleviating factors. The patient reports hematuria, dysuria, nausea with emesis. She is currently on Morphine for her pain. She denies recent headache or dizziness. She denies recent diarrhea or constipation. She denies recent frequency or urgency. She denies recent chest pain or shortness of breath. OBJECTIVE: Alert Vital Signs Period Temp Pulse Resp BP Sys/Jorgensen Pulse Ox Last 24 Hr 98.5 F 81 16 104/71 99 HEENT: No Jaundice, eye redness or discharge, PERRLA, EOMI. Normocephalic, atraumatic. External ears are normal and hearing is grossly intact. No nasal discharge. Neck: Supple, nontender. No palpable adenopathy or thyromegaly. No JVD Chest: Good effort. Clear to auscultation and percussion. Heart: Regular. No S3, rub or murmur Abdomen: Not distended, soft, right CVAT and no HSM. No rebound or guarding. Normoactive bowel sounds. Ext: Peripheral pulses intact. No leg edema. Skin: Warm and dry. No petechiae, rash or ecchymosis. Neuro: Alert. Oriented x3. CN 2-12 grossly intact. Sensation grossly intact in all four extremities and DTR are symmetric. Home Medications Medication Instructions Recorded Clonazepam 1 mg PO DAILY 02/28/18 Propranolol HCl 80 mg PO DAILY 02/28/18 Quetiapine Fumarate [Seroquel -] 400 mg PO HS 02/28/18 Sertraline HCl 50 mg PO DAILY 02/28/18 Vortioxetine Hydrobromide 10 mg PO DAILY 02/28/18 [Trintellix] Abnormal Lab Results 03/13/18 03/13/18 03/13/18 21:55 21:55 21:55 MPV 7.3 L AST 42 H ALT 174 H Alkaline Phosphatase 308 H D Ur Specific Buna 1.057 H Urine Protein 2+ H Urine Ketones Trace H Urine Blood 3+ H ASSESSMENT AND PLAN: 1. Right kidney stone and pyelonephritis - Reportedly had a CT scan 5 days ago at [facility] that showed right kidney stone. Sonogram today did not show any stone. Will get CT abdomen to search for kidney stone and also evaluate the liver in view of elevated LFTs and recent cholecystectomy. Continue rocephin, IV morphine, flomax, IV NS and consult ID and urology. 2. DVT prophylaxis - SCD, TEDs 3. Advance directives - Full code
[2018-03-14] MEDS ORDERED: SODIUM CHLORIDE 0.9% 500 ML INFUS.BAG IV ONE (01:20)
[2018-03-14] MEDS ORDERED: morphine SULFATE 4 MG/ML VIAL IVPUSH PRN (01:55)
[2018-03-14] MEDS ORDERED: MORPHINE SULFATE 2 MG/ML VIAL IVPUSH PRN (02:02)
--- NOTE | 2018-03-14 02:28 | HP ---
CHIEF COMPLAINT: severe right flank with hematuria PCP: HISTORY OF PRESENT ILLNESS: 37 y/o female with PMH of kidney stones requiring lithotripsy and stenting, depression presents to the ED with severe right flank pain, burning on urination with associated hematuria. Patient states the was recently at [facility] about 7 days ago where she presented with similar complaint, found to have a R sided obstructing kidney stone on CT and was discharged with abx and percocet for pain. Patient states she is still having symptoms with associated nausea/vomiting. SHe states she has had kidney stones since around the age of 8, feels that whenever she changes her diet to incorporate more "natural" food they go away, however she admits to recently breaking her diet hence why the stones are back. ER course was notable for: (1) U/A showed 101 WBC 2495 RBC (2) renal U/S did not show any stones or hydronephrosis (3) patient given 2L; ceftriaxone; morphine for pain Recent Travel: none PAST MEDICAL HISTORY: see above PAST SURGICAL HISTORY: cholecystectomy 1.5 months ago; tubal ligation 9 years ago Social History: Smoking:denies Alcohol:denies Drugs: denies Family History: mother has gallstones Allergies ketorolac [From Toradol] Allergy (Intermediate, Verified 03/13/18 22:11) Rash Fish Containing Products Allergy (Verified 02/28/18 12:02) NSAIDS (Non-Steroidal Anti-Inflamma Allergy (Verified 03/13/18 20:34) HOME MEDICATIONS: Home Medications Medication Instructions Recorded Clonazepam 1 mg PO DAILY 02/28/18 Propranolol HCl 80 mg PO DAILY 02/28/18 Quetiapine Fumarate [Seroquel -] 400 mg PO HS 02/28/18 Sertraline HCl 50 mg PO DAILY 02/28/18 Vortioxetine Hydrobromide 10 mg PO DAILY 02/28/18 [Trintellix] REVIEW OF SYSTEMS CONSTITUTIONAL: Absent: fever, chills, diaphoresis, generalized weakness, malaise, loss of appetite, weight change HEENT: Absent: rhinorrhea, nasal congestion, throat pain, throat swelling, difficulty swallowing, mouth swelling, ear pain, eye pain, visual changes CARDIOVASCULAR: Absent: chest pain, syncope, palpitations, irregular heart rate, lightheadedness , peripheral edema RESPIRATORY: Absent: cough, shortness of breath, dyspnea with exertion, orthopnea, wheezing, stridor, hemoptysis GASTROINTESTINAL: Absent: abdominal pain, abdominal distension, nausea, vomiting, diarrhea, constipation, melena, hematochezia GENITOURINARY: Present:dysuria, frequency, hematuria, flank pain Absent: urgency, hesitancy, genital pain MUSCULOSKELETAL: Absent: myalgia, arthralgia, joint swelling, back pain, neck pain SKIN: Absent: rash, itching, pallor HEMATOLOGIC/IMMUNOLOGIC: Absent: easy bleeding, easy bruising, lymphadenopathy, frequent infections ENDOCRINE: Absent: unexplained weight gain, unexplained weight loss, heat intolerance, cold intolerance NEUROLOGIC: Absent: headache, focal weakness or paresthesias, dizziness, unsteady gait, seizure, mental status changes, bladder or bowel incontinence PSYCHIATRIC: Absent: anxiety, depression, suicidal or homicidal ideation, hallucinations. PHYSICAL EXAMINATION Vital Signs - 24 hr 03/13/18 03/14/18 20:31 01:47 Temperature 98.5 F 98.6 F Pulse Rate 81 Pulse Rate [ 85 Left Radial] Respiratory 16 16 Rate Blood Pressure 104/71 Blood Pressure 139/91 [Right Arm] O2 Sat by Pulse 99 94 L Oximetry (%) GENERAL: Awake, alert, and fully oriented, in acute distress. NECK:no JVD appreciated. LUNGS: lungs CTA B/L; no rales,rhonchi,wheezing appreciated . HEART: Regular rate and rhythm, normal S1 and S2 without murmur, rub or gallop. ABDOMEN: Soft, nontender, not distended, normoactive bowel sounds, no guarding, no rebound, no masses. No hepatomegaly or splenomegaly. MUSCULOSKELETAL: + severe R sided CVA tenderness. EXTREMITIES: warm; well perfused; no clubbing/cyanosis or edema NEUROLOGICAL: Cranial nerves II-XII intact. Normal speech. Normal gait. PSYCHIATRIC: Cooperative. Good eye contact. Appropriate mood and affect. SKIN: Warm, dry, normal turgor, no rashes or lesions noted, normal capillary refill. Laboratory Results - last 24 hr 03/13/18 03/13/18 03/13/18 21:55 21:55 21:55 WBC 8.2 RBC 3.96 Hgb 11.0 Hct 32.9 D MCV 83.1 MCH 27.6 MCHC 33.3 RDW 15.1 Plt Count 323 D MPV 7.3 L Absolute Neuts (auto) 5.8 Neutrophils % 71.0 D Lymphocytes % 19.1 D Monocytes % 5.4 Eosinophils % 3.7 Basophils % 0.8 Nucleated RBC % 0 Sodium 138 Potassium 4.2 Chloride 106 Carbon Dioxide 23 Anion Gap 9 BUN 10 Creatinine 0.9 Creat Clearance w eGFR > 60 Random Glucose 92 Calcium 9.6 Total Bilirubin 0.4 AST 42 H ALT 174 H Alkaline Phosphatase 308 H D Total Protein 8.2 D Albumin 4.0 Serum , Qual Urine Color Red Urine Appearance Cloudy Urine pH 6.0 Ur Specific [place] 1.057 H Urine Protein 2+ H Urine Glucose (UA) Negative Urine Ketones Trace H Urine Blood 3+ H Urine Nitrite Negative Urine Bilirubin Negative Urine Urobilinogen Negative Ur Leukocyte Esterase Negative Urine WBC (Auto) 101 Urine RBC (Auto) 2495 Ur Epithelial Cells Many 03/13/18 21:55 WBC RBC Hgb Hct MCV MCH MCHC RDW Plt Count MPV Absolute Neuts (auto) Neutrophils % Lymphocytes % Monocytes % Eosinophils % Basophils % Nucleated RBC % Sodium Potassium Chloride Carbon Dioxide Anion Gap BUN Creatinine Creat Clearance w eGFR Random Glucose Calcium Total Bilirubin AST ALT Alkaline Phosphatase Total Protein Albumin Serum , Qual Negative Urine Color Urine Appearance Urine pH Ur Specific [place] Urine Protein Urine Glucose (UA) Urine Ketones Urine Blood Urine Nitrite Urine Bilirubin Urine Urobilinogen Ur Leukocyte Esterase Urine WBC (Auto) Urine RBC (Auto) Ur Epithelial Cells ASSESSMENT/PLAN: 37 y/o with PMH of kidney stones presents to the ED with severe right flank pain with associated burning on urination and hematuria after recently being discharged from [facility] where she was found to have a R sided obstructed kidney stone on CT. # Renal Stone renal U/S did not demonstrate any signs of renal calculi, even though patient does not recall passing any stones -CT ab/pelvis ordered to further evaluate -morphine PRN for pain -urology consult ordered -repeat U/A # Transaminitis unclear etiology of elevated LFT's, even given patients recent cholecystectomy -CT ordered to evaluate for any stones or pathology -GI consult ordered DVT Prophylaxis: SCD's F/E/N receiving second liter of fluids replete electrolytes when necessary regular diet dispo: obs/med-surg Problem List - Problem (1) Renal colic on right side Code(s): N23 - UNSPECIFIED RENAL COLIC (2) History of nephrolithiasis Code(s): Z87.442 - PERSONAL HISTORY OF URINARY CALCULI Visit type - Emergency Visit Emergency Visit: Yes ED Registration Date: 03/14/18 Care time: The patient presented to the Emergency Department on the above date and was hospitalized for further evaluation of their emergent condition. - New Patient This patient is new to me today: Yes Date on this admission: 03/14/18 - Critical Care Critical Care patient: No Hospitalist Screening - Colonoscopy Questionnaire Colonoscopy Questionnaire: Colonoscopy Questionnaire - Patient: 50 - 75 years old and never had a screening colonoscopy: Unknown History of colon or rectal polyps, or CA: Unknown History of IBD, Crohn's disease or UC: Unknown History of abdominal radiation therapy as a child: Unknown - Relative: 1 with colon or rectal CA, or polyps at age 60 or younger: Unknown Colon or rectal CA diagnosed at age 45 or younger: Unknown Multiple relatives with colon or rectal CA: Unknown - Outcome: Screening Result: Negative Screen
[2018-03-14] MEDS ORDERED: TAMSULOSIN HCL 0.4 MG CAP.ER.24H (FP) PO ONE (02:58)
[2018-03-14 03:05] VITALS: BMI 30.9
[2018-03-14 05:01] LABS: URINE APPEARANCE CLOUDY; URINE BILIRUBIN NEGATIVE (<2.0 mg/dL); URINE COLOR RED; URINE GLUCOSE (UA) NEGATIVE (NEGATIVE); URINE KETONE NEGATIVE (NEGATIVE); URINE LEUK ESTERASE TRACE (NEGATIVE); URINE NITRITE NEGATIVE (NEGATIVE); URINE UROBILINOGEN NEGATIVE mg/dL (0.2-1.0)
[2018-03-14 05:07] LABS: URINE PROTEIN 2+ (NEGATIVE)
[2018-03-14 05:09] LABS: METHADONE, UR NEGATIVE ng/ml (CUTOFF=300); PHENCYCLIDINE,URINE NEGATIVE ng/ml (CUTOFF=25); URINE AMPHETAMINES NEGATIVE ng/ml (CUTOFF=500); URINE BARBITURATES NEGATIVE ng/ml (CUTOFF=200)
[2018-03-14 05:11] LABS: COCAINE, UR POSITIVE ng/ml (CUTOFF=300); OPIATES, URI POSITIVE ng/ml (CUTOFF=300); URINE BENZODIAZEPINES POSITIVE ng/ml (CUTOFF=200)
[2018-03-14 05:15] LABS: CALCIUM OXALATE CRYSTALS MANY /hpf (NONE SEEN); EPI CELLS MANY /HPF (FEW); URINE BACTERIA RARE /hpf (NONE SEEN); URINE MUCUS RARE
[2018-03-14 07:39] LABS: BASO % 0.5 % (0-2.0); EOS % 4.6 % (0-4.5); HEMATOCRIT 27.2 % (32.4-45.2); HEMOGLOBIN 8.9 GM/dL (10.7-15.3); MCH 27.3 pg (25.7-33.7); MCHC 32.6 g/dl (32.0-36.0); MEAN CELL VOLUME 83.7 fl (80-96); MEAN PLT VOLUME 7.3 fl (7.5-11.1); MONO % 6.6 % (3.8-10.2); NEUT % 60.3 % (42.8-82.8); PLATELET COUNT 202 K/MM3 (134-434); RBC 3.25 M/mm3 (3.60-5.2); RDW 15.1 % (11.6-15.6); WHITE BLOOD COUNT 5.5 K/mm3 (4.0-10.0)
[2018-03-14] MEDS ORDERED: traMADol HCL 50 MG TABLET PO PRN (07:46)
[2018-03-14 08:31] LABS: ANION GAP 7 MMOL/L (8-16); BLOOD UREA NITROGEN 7 mg/dL (7-18); CALCIUM 7.8 mg/dL (8.5-10.1); CHLORIDE 109 mmol/L (98-107); CO2 23 mmol/L (21-32); GLUCOSE,RANDOM 80 mg/dL (74-106); PHOSPHOROUS 2.4 mg/dL (2.5-4.9); POTASSIUM 3.6 mmol/L (3.5-5.1); SODIUM 139 mmol/L (136-145)
[2018-03-14 08:34] LABS: ALK PHOS 226 U/L (45-117); BILIRUBIN,TOTAL 0.3 mg/dL (0.2-1.0); CREATININE 0.7 mg/dL (0.55-1.02); MAGNESIUM 1.8 mg/dL (1.8-2.4); SGOT/AST 27 U/L (15-37); SGPT/ALT 116 U/L (12-78); TOT PROT 6.2 g/dl (6.4-8.2)
[2018-03-14] MEDS ORDERED: PATIENT'S OWN MEDICATION (NON-FORMULARY) (Vortioxetine Hydrobromide [Trintellix] 10 MG) PO SCH (10:00)
[2018-03-14] MEDS ORDERED: clonazePAM 0.5 MG TABLET PO SCH (10:00)
[2018-03-14] MEDS ORDERED: SERTRALINE HCL 50 MG TABLET (FP) PO SCH (10:00)
[2018-03-14] MEDS ORDERED: CEFTRIAXONE 1 GM in DEXTROSE 5%-WATER - 50 ML IVPB SCH (10:00)
--- NOTE | 2018-03-14 10:32 | DS ---
"Physical Exam: SUBJECTIVE: Patient seen and examined. OBJECTIVE: Vital Signs Period Temp Pulse Resp BP Sys/Jorgensen Pulse Ox Last 24 Hr 98.0 F-98.6 F 81-89 16-18 104-143/71-96 94-99 PHYSICAL EXAM GENERAL: The patient is awake, alert, and fully oriented, in no acute distress. LUNGS: Breath sounds equal, clear to auscultation bilaterally, no wheezes, no crackles, no accessory muscle use. HEART: Regular rate and rhythm, S1, S2 without murmur, rub or gallop. ABDOMEN: Soft, nontender, nondistended, normoactive bowel sounds; +right CVA tenderness EXTREMITIES: 2+ pulses, warm, well-perfused, no edema. NEUROLOGICAL: Cranial nerves II through XII grossly intact. Normal speech, gait not observed. LABS Laboratory Results - last 24 hr 03/13/18 03/13/18 03/13/18 21:55 21:55 21:55 WBC 8.2 RBC 3.96 Hgb 11.0 Hct 32.9 D MCV 83.1 MCH 27.6 MCHC 33.3 RDW 15.1 Plt Count 323 D MPV 7.3 L Absolute Neuts (auto) 5.8 Neutrophils % 71.0 D Lymphocytes % 19.1 D Monocytes % 5.4 Eosinophils % 3.7 Basophils % 0.8 Nucleated RBC % 0 Sodium 138 Potassium 4.2 Chloride 106 Carbon Dioxide 23 Anion Gap 9 BUN 10 Creatinine 0.9 Creat Clearance w eGFR > 60 Random Glucose 92 Calcium 9.6 Phosphorus Magnesium Total Bilirubin 0.4 AST 42 H ALT 174 H Alkaline Phosphatase 308 H D Total Protein 8.2 D Albumin 4.0 Serum , Qual Urine Color Red Urine Appearance Cloudy Urine pH 6.0 Ur Specific [place] 1.057 H Urine Protein 2+ H Urine Glucose (UA) Negative Urine Ketones Trace H Urine Blood 3+ H Urine Nitrite Negative Urine Bilirubin Negative Urine Urobilinogen Negative Ur Leukocyte Esterase Negative Urine WBC (Auto) 101 Urine RBC (Auto) 2495 Ur Epithelial Cells Many Calcium Oxalate Crystal Urine Bacteria Urine Mucus Opiates Screen Methadone Screen Barbiturate Screen Phencyclidine Screen Ur Amphetamines Screen MDMA (Ecstasy) Screen Benzodiazepines Screen Cocaine Screen U Marijuana (THC) Screen 03/13/18 03/14/18 03/14/18 21:55 03:50 03:50 WBC RBC Hgb Hct MCV MCH MCHC RDW Plt Count MPV Absolute Neuts (auto) Neutrophils % Lymphocytes % Monocytes % Eosinophils % Basophils % Nucleated RBC % Sodium Potassium Chloride Carbon Dioxide Anion Gap BUN Creatinine Creat Clearance w eGFR Random Glucose Calcium Phosphorus Magnesium Total Bilirubin AST ALT Alkaline Phosphatase Total Protein Albumin Serum , Qual Negative Urine Color Red Urine Appearance Cloudy Urine pH 6.0 Ur Specific [place] 1.024 Urine Protein 2+ H Urine Glucose (UA) Negative Urine Ketones Negative Urine Blood 3+ H Urine Nitrite Negative Urine Bilirubin Negative Urine Urobilinogen Negative Ur Leukocyte Esterase Trace Urine WBC (Auto) 19 Urine RBC (Auto) 1477 Ur Epithelial Cells Many Calcium Oxalate Crystal Many Urine Bacteria Rare Urine Mucus Rare Opiates Screen Positive Methadone Screen Negative Barbiturate Screen Negative Phencyclidine Screen Negative Ur Amphetamines Screen Negative MDMA (Ecstasy) Screen Negative Benzodiazepines Screen Positive Cocaine Screen Positive U Marijuana (THC) Screen Negative 03/14/18 03/14/18 07:00 07:00 WBC 5.5 RBC 3.25 L Hgb 8.9 L Hct 27.2 L D MCV 83.7 MCH 27.3 MCHC 32.6 RDW 15.1 Plt Count 202 D MPV 7.3 L Absolute Neuts (auto) 3.3 Neutrophils % 60.3 Lymphocytes % 28.0 D Monocytes % 6.6 Eosinophils % 4.6 H Basophils % 0.5 Nucleated RBC % 0 Sodium 139 Potassium 3.6 Chloride 109 H Carbon Dioxide 23 Anion Gap 7 L BUN 7 Creatinine 0.7 Creat Clearance w eGFR > 60 Random Glucose 80 Calcium 7.8 L Phosphorus 2.4 L Magnesium 1.8 Total Bilirubin 0.3 AST 27 ALT 116 H Alkaline Phosphatase 226 H D Total Protein 6.2 L D Albumin 3.0 L Serum , Qual Urine Color Urine Appearance Urine pH Ur Specific [place] Urine Protein Urine Glucose (UA) Urine Ketones Urine Blood Urine Nitrite Urine Bilirubin Urine Urobilinogen Ur Leukocyte Esterase Urine WBC (Auto) Urine RBC (Auto) Ur Epithelial Cells Calcium Oxalate Crystal Urine Bacteria Urine Mucus Opiates Screen Methadone Screen Barbiturate Screen Phencyclidine Screen Ur Amphetamines Screen MDMA (Ecstasy) Screen Benzodiazepines Screen Cocaine Screen U Marijuana (THC) Screen HOSPITAL COURSE: Date of Admission:03/14/18 Date of Discharge: 03/14/18 37 year-old female withy a PMH significant for nephrolithiasis since age 8, reportedly s/p multiple lithotripsy and stenting procedures, last one 4 years ago in [place]. Placed on observation for r/o nephrolithiais. This is patient's third admission in as many months for the same complaint. On previous admissions, CT scans were negative for renal calculi. Patient signed out AMA on both previous admissions. After seeing and examining the patient today she was advised that a CT scan was ordered to determine if she had renal calculi. She said she wanted IV pain medication first. She was reminded that she had two previous negative CT scans in the past two months, and that IV pain medication would be held until such time as we had objective findings from today's CT scan. Patient was offered Ultram. Patient refused the Ultram. She agreed to the CT scan. She was last seen by this provider in a wheelchair waiting to be transported to the scanner. Patient subsequently signed out AMA. This report was requested by: Simran Wolf | Reference #: [id number] Others' Prescriptions Patient Name: Leona Mcgraw Date: 1980 Address: [address] [place] [address] Sex: Female Rx Written Rx Dispensed Drug Quantity Days Supply Prescriber Name 03/06/2018 03/06/2018 oxycodone-acetaminophen 5-325 mg tablet 5 1 Kofi Alarcon 02/27/2018 02/27/2018 clonazepam 0.5 mg tablet 90 30 Goyo Lake MD Patient Name: Leona Mcgraw Date: 1980 Address: [address] [place] [address] Sex: Female Rx Written Rx Dispensed Drug Quantity Days Supply Prescriber Name 01/31/2018 02/02/2018 oxycodone hcl 5 mg tablet 15 4 [facility] Patient Name: Leona Mcgraw Date: 1980 Address: [address] [place], [place] [id number] [address] Sex: Female Rx Written Rx Dispensed Drug Quantity Days Supply Prescriber Name 12/12/2017 12/12/2017 clonazepam 1 mg tablet 40 10 Goyo Lake MD Patient Name: Leona Mcgraw Date: 1980 Address: [address] [place] [id number] Sex: Female Rx Written Rx Dispensed Drug Quantity Days Supply Prescriber Name 11/23/2017 11/24/2017 oxycodone-acetaminophen 5-325 mg tab 12 3 Cristiano Tolbert 11/15/2017 11/17/2017 clonazepam 1 mg tablet 60 15 Goyo Lake MD 11/13/2017 11/13/2017 oxycodone-acetaminophen 5-325 mg tab 30 3 Joseph Triplett V () 11/03/2017 11/08/2017 clonazepam 1 mg tablet 28 7 Goyo Lake MD Patient Name: Leona Mcgraw Date: 1980 Address: [address] [place] [address] [address] [place] [address] Sex: Female Rx Written Rx Dispensed Drug Quantity Days Supply Prescriber Name 10/09/2017 10/09/2017 clonazepam 1 mg tablet 120 30 Goyo Lake MD Patient Name: Leona Mcgraw Date: 1980 Address: [address] [place] [address] Sex: Female Rx Written Rx Dispensed Drug Quantity Days Supply Prescriber Name 08/28/2017 08/29/2017 acetaminophen-cod #3 tablet 15 5 Desire Chau O (PA) 08/29/2017 08/29/2017 oxycodone-acetaminophen 5-325 mg tab 5 2 Nury Elliott (, PHD) 08/21/2017 08/21/2017 oxycodone-acetaminophen 5-325 mg tab 15 4 Carmelo Church MD 03/15/2017 03/15/2017 hydrocodone-acetaminophen 5-325 tablet 6 2 Giana Araiza Patient Name: Leona Mcgraw Date: 1980 Address: [address] [place] [address] Sex: Female Rx Written Rx Dispensed Drug Quantity Days Supply Prescriber Name 08/02/2017 08/05/2017 clonazepam 1 mg tablet 60 15 Gerard Gudino MD 07/05/2017 07/05/2017 clonazepam 1 mg tablet 60 15 Gerard Gudino MD 06/02/2017 06/06/2017 clonazepam 1 mg tablet 60 15 Gerard Gudino MD 05/03/2017 05/10/2017 clonazepam 1 mg tablet 60 15 Gerard Gudino MD 04/07/2017 04/12/2017 clonazepam 1 mg tablet 60 30 Gerard Gudino MD Patient Name: Leona Mcgraw Date: 1980 Address: [address] [place] [address] Sex: Female Rx Written Rx Dispensed Drug Quantity Days Supply Prescriber Name 03/16/2017 03/16/2017 oxycodone-acetaminophen 5-325 mg tab 14 7 Jennifer Blake MD Minutes to complete discharge: 35 Discharge Summary Reason For Visit: INTRACTABLE ABDOMINAL PAIN Current Active Problems Renal colic on right side (Acute) Condition: Unchanged/Unknown - Instructions Disposition: AGAINST MEDICAL ADVICE - Home Medications Comprehensive Discharge Medication List: Ambulatory Orders Clonazepam 1 mg PO DAILY 02/28/18 Propranolol HCl 80 mg PO DAILY 02/28/18 Quetiapine Fumarate [Seroquel -] 400 mg PO HS 02/28/18 Sertraline HCl 50 mg PO DAILY 02/28/18 Vortioxetine Hydrobromide [Trintellix] 10 mg PO DAILY 02/28/18 This patient is new to me today: Yes Date on this admission: 03/14/18 Emergency Visit: Yes ED Registration Date: 03/14/18 Care time: The patient presented to the Emergency Department on the above date and was hospitalized for further evaluation of their emergent condition. Critical Care patient: No - Discharge Referral Referred to [facility] Med [facility] No"
[2018-03-14 10:41] VITALS: BP 128/84; PULSE 88; TEMP 98.2
[2018-03-14] MEDS ORDERED: QUEtiapine FUMARATE 200 MG TABLET PO SCH (22:00)
== END 2018-03-14 10:33 | disposition left against medical advice (07) ==
LOC: JER 20:16 → JERBED 03-14 00:36 → UNDOADMOB 03-14 00:41 → JERBED 03-14 00:41 → J8W 03-14 02:37
PROVIDERS: ADMIT Internal Medicine; ATTEND Nurse Practitioner Acute Care
PROC: 3E033NZ Introduction of Analgesics, Hypnotics, Sedatives into Peripheral Vein, Percutaneous Approach (ICD-10-PCS; principal; 2018-03-14)
PROC: 3E033GC Introduction of Other Therapeutic Substance into Peripheral Vein, Percutaneous Approach (ICD-10-PCS; 2018-03-14)
PROC: 3E0337Z Introduction of Electrolytic and Water Balance Substance into Peripheral Vein, Percutaneous Approach (ICD-10-PCS; 2018-03-14)
DX: N20.0 Calculus of kidney (principal); Z87.442 Personal history of urinary calculi; R74.0 Nonspecific elevation of levels of transaminase and lactic acid dehydrogenase [LDH]; R10.9 Unspecified abdominal pain
CPT/HCPCS: 36415; 76775-TC; 80053; 80307; 81003; 81015; 83735; 84100; 84703; 85025; 87040; 87077; 87086; 96361; 96365; 96375; 96376; 99283-25; G0378; J0131; J7030

== ENCOUNTER 2018-04-22 06:53 | Emergency (ER) | payer OTHER ==
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
[2018-04-22] MEDS ORDERED: SODIUM CHLORIDE 1,000 ML IV STA (07:10)
[2018-04-22] MEDS ORDERED: morphine CARPU-JECT 4 MG/1 ML DISP.SYRIN IVPUSH ONE ×2 (07:21→11:57)
[2018-04-22 07:35] VITALS: BMI 31.8
[2018-04-22 09:20] LABS: BASO % 0.7 % (0-2.0); EOS % 3.2 % (0-4.5); HEMATOCRIT 32.8 % (32.4-45.2); HEMOGLOBIN 10.6 GM/dL (10.7-15.3); LYMPH % 28.8 % (8-40); MCH 26.2 pg (25.7-33.7); MCHC 32.4 g/dl (32.0-36.0); MEAN CELL VOLUME 80.6 fl (80-96); MEAN PLT VOLUME 7.5 fl (7.5-11.1); MONO % 4.5 % (3.8-10.2); NEUT % 62.8 % (42.8-82.8); PLATELET COUNT 247 K/MM3 (134-434); RBC 4.07 M/mm3 (3.60-5.2); RDW 16.1 % (11.6-15.6); WHITE BLOOD COUNT 4.4 K/mm3 (4.0-10.0)
[2018-04-22 09:44] LABS: ALBUMIN 3.8 g/dl (3.4-5.0); ALK PHOS 98 U/L (45-117); ANION GAP 8 MMOL/L (8-16); BILIRUBIN,TOTAL 0.2 mg/dL (0.2-1); BLOOD UREA NITROGEN 11 mg/dL (7-18); CALCIUM 8.5 mg/dL (8.5-10.1); CHLORIDE 112 mmol/L (98-107); CO2 23 mmol/L (21-32); CREATININE 0.8 mg/dL (0.55-1.3); GLUCOSE,RANDOM 83 mg/dL (74-106); LIPASE 209 U/L (73-393); POTASSIUM 4.2 mmol/L (3.5-5.1); SGOT/AST 22 U/L (15-37); SGPT/ALT 20 U/L (13-61); SODIUM 143 mmol/L (136-145); TOT PROT 7.6 g/dl (6.4-8.2)
[2018-04-22 10:10] LABS: URINE APPEARANCE TURBID; URINE BILIRUBIN NEGATIVE (<2.0 mg/dL); URINE GLUCOSE (UA) NEGATIVE (NEGATIVE); URINE KETONE NEGATIVE (NEGATIVE); URINE LEUK ESTERASE 1+ (NEGATIVE); URINE NITRITE NEGATIVE (NEGATIVE); URINE PROTEIN 2+ (NEGATIVE); URINE UROBILINOGEN NEGATIVE mg/dL (0.2-1.0)
[2018-04-22 10:12] LABS: URINE COLOR BROWN
[2018-04-22 10:14] LABS: EPI CELLS MANY /HPF (FEW); URINE MUCUS FEW
[2018-04-22] MEDS ORDERED: ACETAMINOPHEN 1000 MG/100 ML VIAL (NON FORMULARY) IVPB ONE (10:33)
[2018-04-22] MEDS ORDERED: ACETAMINOPHEN INJECTION 100 ML IVPB ONE (10:48)
--- NOTE | 2018-04-22 10:57 | PDOC ---
Attending Attestation - Resident Resident Name: JunieLaila - ED Attending Attestation I have performed the following: I have examined & evaluated the patient, The case was reviewed & discussed with the resident, I agree w/resident's findings & plan - HPI HPI: 04/22/18 10:43 The patient is a 37 year old female, with a significant PMH of depression, ureterolithiasis requiring lithotripsy and stenting, UTI, cholelithiasis,who presents to the emergency department with 4 days of intermittent right flank pain. The patient describes the intermittent right flank pain as sharp, rated 10 /10, without any exacerbating or alleviating factors. The patient also endorses nausea, vomiting (non bloody non bilious), dysuria.. The patient states she was evaluated 1 week ago for a similar pain and had a CT performed which was negative for kidney stones at that time. Also notes she has been experiencing VB x 1 month, LMP 03/05/18 The patient denies chest pain, shortness of breath, headache and dizziness. Denies fever, chills, diarrhea and constipation. Denies frequency or urgency. Allergies: ketorolac, fish containing products, (More) Past surgical history: cholecystectomy, tubal ligation Social history: No reported - Physicial Exam PE: 04/22/18 12:05 NAD, well appearing, MMM, nl conjunctiva, anicteric; neck supple. lungs clear, RRR, abdomen soft nontender. +right flank TTP. obese abdomen. [place] x4, no focal neuro deficits. No peripheral edema. normal color for ethnicity, WWP. Female : normal external genitalia, no lesions, scant blood in vaginal vault , no CMT, no adnexal tenderness. no active vaginal bleeding. Smooth and pink cervix, closed. - Medical Decision Making 04/22/18 12:06 DDx abdominal pain: Renal colic, biliary colic, GERD, PUD, esophageal spasm, pancreatitis, hepatitis, constipation, colitis, UTI, pyelonephritis gallbladder removed. Vital signs within normal limits, no fevers. Remains well-appearing, no acute distress in the emergency department. Given IV morphine, Tylenol and fluids with some dramatic improvement. Bedside ultrasound did not reveal any hydronephrosis. Laboratory results including electrolytes are normal, no leukocytosis. Urinalysis with epithelials and blood, 1+ leuk esterase and currently is finishing a course of amoxicillin with 1 more day left. However the hematuria? that appears on the urinalysis is likely related to her vaginal bleeding which she has been experiencing 1 month. We'll proceed with comprehensive renal and pelvic ultrasound to rule out acute pathology. 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 Yumiko had a CT scan done about one week ago at outside hospital for similar symptoms with negative findings. She has had repeated CT scans due to recurrent nephrolithiasis and discuss risks and benefits of further testing, patient elects for ultrasound and minimize her radiation exposure which is reasonable as I doubt emergent intra-abdominal pathology and reassuring ultrasound findings. No narcotics, rx pyridium for urinary sx and change to keflex for UTI. otc tylenol PRN. 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 views obtained: bilateral kidneys in short and long axis, bladder. findings: no evidence of hydronephrosis. Impression: no acute findings.
[2018-04-22] MEDS ORDERED: morphine SULFATE 4 MG/ML VIAL ONE (12:40)
[2018-04-22] MEDS ORDERED: ONDANSETRON *ODT* 4 MG TABLET SL ONE (13:15)
[2018-04-22] MEDS ORDERED: ONDANSETRON 4 MG/2 ML VIAL ONE (13:20)
[2018-04-22] MEDS ORDERED: ACETAMINOPHEN 500 MG TABLET (FP) PO ONE (14:22)
[2018-04-22] MEDS ORDERED: ACETAMINOPHEN 325 MG TABLET (FP) ONE (14:31)
[2018-04-22 14:58] VITALS: BP 110/65; PULSE 74; TEMP 98.3
== END 2018-04-22 14:54 | disposition home or self-care (01) ==
LOC: JER 06:53
PROC: 3E033NZ Introduction of Analgesics, Hypnotics, Sedatives into Peripheral Vein, Percutaneous Approach (ICD-10-PCS; principal; 2018-04-22)
DX: N93.8 Other specified abnormal uterine and vaginal bleeding (principal); N39.0 Urinary tract infection, site not specified; N83.201 Unspecified ovarian cyst, right side; F32.9 Major depressive disorder, single episode, unspecified; Z87.442 Personal history of urinary calculi; Z96.0 Presence of urogenital implants
CPT/HCPCS: 36415; 76775-TC; 76830-TC; 80053; 81003; 81015; 83690; 84703; 85025; 87070; 87086; 87186; 87430; 96374; 99283-25; J0131; J7030; Q0162

== ENCOUNTER 2018-04-24 23:56 | Inpatient (IN) | payer OTHER ==
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
[2018-04-25 01:51] VITALS: BMI 25.7
[2018-04-25] MEDS ORDERED: ONDANSETRON 4 MG/2 ML VIAL IVPUSH ONE (02:00)
[2018-04-25] MEDS ORDERED: SODIUM CHLORIDE 1,000 ML IV STA (02:00)
[2018-04-25] MEDS ORDERED: MEROPENEM 500 MG in DEXTROSE 5%-WATER 100 ML IVPB ONE (02:01)
[2018-04-25] MEDS ORDERED: morphine CARPU-JECT 4 MG/1 ML DISP.SYRIN IVPUSH ONE (02:23)
[2018-04-25] MEDS ORDERED: ONDANSETRON 4 MG/2 ML VIAL ONE (02:56)
[2018-04-25] MEDS ORDERED: MORPHINE SULFATE 2 MG/ML VIAL ONE (02:56)
[2018-04-25 04:03] LABS: BASO % 0.4 % (0-2.0); EOS % 3.4 % (0-4.5); HEMATOCRIT 32.2 % (32.4-45.2); HEMOGLOBIN 10.4 GM/dL (10.7-15.3); LYMPH % 20.7 % (8-40); MCH 25.8 pg (25.7-33.7); MCHC 32.4 g/dl (32.0-36.0); MEAN CELL VOLUME 79.7 fl (80-96); MEAN PLT VOLUME 7.3 fl (7.5-11.1); MONO % 5.7 % (3.8-10.2); NEUT % 69.8 % (42.8-82.8); PLATELET COUNT 307 K/MM3 (134-434); RBC 4.03 M/mm3 (3.60-5.2); RDW 15.9 % (11.6-15.6); WHITE BLOOD COUNT 5.4 K/mm3 (4.0-10.0)
[2018-04-25] MEDS ORDERED: SODIUM CHLORIDE 1,000 ML IV SCH ×2 (04:30→06:30)
[2018-04-25 04:31] LABS: ALBUMIN 4.1 g/dl (3.4-5.0); ALK PHOS 126 U/L (45-117); ANION GAP 9 MMOL/L (8-16); BILIRUBIN,TOTAL 0.2 mg/dL (0.2-1); BLOOD UREA NITROGEN 8 mg/dL (7-18); CALCIUM 8.8 mg/dL (8.5-10.1); CHLORIDE 107 mmol/L (98-107); CO2 22 mmol/L (21-32); CREATININE 0.7 mg/dL (0.55-1.3); GLUCOSE,RANDOM 85 mg/dL (74-106); LIPASE 122 U/L (73-393); POTASSIUM 4.3 mmol/L (3.5-5.1); SGOT/AST 35 U/L (15-37); SGPT/ALT 34 U/L (13-61); SODIUM 139 mmol/L (136-145)
[2018-04-25 05:04] LABS: URINE APPEARANCE SLCLOUDY; URINE BILIRUBIN NEGATIVE (<2.0 mg/dL); URINE COLOR RED; URINE GLUCOSE (UA) NEGATIVE (NEGATIVE); URINE KETONE NEGATIVE (NEGATIVE); URINE LEUK ESTERASE NEGATIVE (NEGATIVE); URINE NITRITE NEGATIVE (NEGATIVE); URINE PROTEIN 2+ (NEGATIVE); URINE UROBILINOGEN NEGATIVE mg/dL (0.2-1.0)
[2018-04-25 05:26] LABS: METHADONE, UR NEGATIVE ng/ml (CUTOFF=300); PHENCYCLIDINE,URINE NEGATIVE ng/ml (CUTOFF=25); URINE AMPHETAMINES NEGATIVE ng/ml (CUTOFF=500); URINE BARBITURATES NEGATIVE ng/ml (CUTOFF=200); URINE BENZODIAZEPINES NEGATIVE ng/ml (CUTOFF=200)
[2018-04-25 05:27] LABS: COCAINE, UR POSITIVE ng/ml (CUTOFF=300); OPIATES, URI POSITIVE ng/ml (CUTOFF=300)
[2018-04-25 05:31] LABS: CALCIUM OXALATE CRYSTALS MANY /hpf (NONE SEEN); EPI CELLS RARE /HPF (FEW); URINE BACTERIA RARE /hpf (NONE SEEN)
--- NOTE | 2018-04-25 06:16 | HP ---
CHIEF COMPLAINT: "My kidney hurts" PCP: HISTORY OF PRESENT ILLNESS: Patient is a 37 year old female with history of nephrolithiasis, s/p lithotripsy and renal stents, anxiety, depression presents with complaint of right flank pain. Pain has been ongoing for the pat three months, worsening over the past 4 days. Admits nausea, four episodes bilious vomiting, decreased appetite, malaise, dysuria, hematuria. Over the past month she has been seen for similar complaints at numerous hospitals, treated with Amoxicillin, and Keflex. She was called to come in by [facility] ED for ESBL resistant Kelbsiella noted on recent urine culture from 04/22. ER course was notable for: (1) UA (2) Meropenem 500mg IV, morphine 4mg, zofran 4mg IV, IVNS PAST MEDICAL HISTORY: nephrolithiasis, s/p lithotripsy and renal stents, anxiety , depression PAST SURGICAL HISTORY: cholecystectomy Social History: Smoking: denies Alcohol: admits one shot of alcohol socially Drugs: admits using cocaine once three years ago Family History: Allergies ketorolac [From Toradol] Allergy (Intermediate, Verified 04/25/18 01:32) Rash Fish Containing Products Allergy (Verified 04/25/18 01:32) NSAIDS (Non-Steroidal Anti-Inflamma Allergy (Verified 04/25/18 01:32) HOME MEDICATIONS: Home Medications Medication Instructions Recorded Clonazepam 1 mg PO DAILY 02/28/18 Propranolol HCl 80 mg PO DAILY 02/28/18 Quetiapine Fumarate [Seroquel -] 400 mg PO HS 02/28/18 Sertraline HCl 50 mg PO DAILY 02/28/18 Vortioxetine Hydrobromide 10 mg PO DAILY 02/28/18 [Trintellix] Cephalexin [Keflex] 500 mg PO BID 5 Days #10 capsule 04/22/18 Ondansetron HCl [Zofran] 4 mg PO DAILY PRN #3 tablet 04/22/18 Phenazopyridine HCl [Pyridium -] 100 mg PO PC 3 Days #6 tablet 04/22/18 REVIEW OF SYSTEMS As per HPI PHYSICAL EXAMINATION Vital Signs - 24 hr 04/25/18 00:00 Temperature 99.2 F Pulse Rate 78 Respiratory 18 Rate Blood Pressure 177/72 H O2 Sat by Pulse 98 Oximetry (%) GENERAL: Awake, alert, and fully oriented, in no mild distress. HEAD: Normal with no signs of trauma. EYES: Pupils equal, round and reactive to light, extraocular movements intact, sclera anicteric, conjunctiva clear. EARS, NOSE, THROAT: Ears normal, nares patent, oropharynx clear without exudates. Moist mucous membranes. NECK: Normal range of motion, supple without lymphadenopathy, JVD, or masses. LUNGS: Breath sounds equal, clear to auscultation bilaterally. No wheezes, and no crackles. No accessory muscle use. HEART: Regular rate and rhythm, normal S1 and S2 without murmur, rub or gallop. ABDOMEN: Soft, nontender, not distended, normoactive bowel sounds, no guarding, no rebound, no masses. No hepatomegaly or splenomegaly. MUSCULOSKELETAL: Right sided CVA tenderness. Normal range of motion at all joints. No bony deformities or tenderness. UPPER EXTREMITIES: 2+ radial pulses b/l, warm, well-perfused. No cyanosis. No clubbing. No peripheral edema. LOWER EXTREMITIES: 2+ dorsalis pedis pulses b/l, warm, well-perfused. No calf tenderness. No peripheral edema. NEUROLOGICAL: Cranial nerves II-XII intact. Normal speech. Normal gait. PSYCHIATRIC: Cooperative. Good eye contact. Appropriate mood and affect. SKIN: Warm, dry, normal turgor, no rashes or lesions noted, normal capillary refill. Laboratory Results - last 24 hr 04/25/18 04/25/18 04/25/18 03:20 03:30 03:30 WBC 5.4 RBC 4.03 Hgb 10.4 L Hct 32.2 L MCV 79.7 L MCH 25.8 MCHC 32.4 RDW 15.9 H Plt Count 307 D MPV 7.3 L Absolute Neuts (auto) 3.8 Neutrophils % 69.8 Lymphocytes % 20.7 D Monocytes % 5.7 Eosinophils % 3.4 Basophils % 0.4 Nucleated RBC % 0 Sodium 139 Potassium 4.3 Chloride 107 Carbon Dioxide 22 Anion Gap 9 BUN 8 Creatinine 0.7 Creat Clearance w eGFR > 60 Random Glucose 85 Calcium 8.8 Total Bilirubin 0.2 AST 35 ALT 34 Alkaline Phosphatase 126 H Total Protein 8.0 Albumin 4.1 Lipase 122 Serum , Qual Negative Urine Color Urine Appearance Urine pH Ur Specific [place] Urine Protein Urine Glucose (UA) Urine Ketones Urine Blood Urine Nitrite Urine Bilirubin Urine Urobilinogen Ur Leukocyte Esterase Urine WBC (Auto) Urine RBC (Auto) Ur Epithelial Cells Calcium Oxalate Crystal Urine Bacteria Opiates Screen Methadone Screen Barbiturate Screen Phencyclidine Screen Ur Amphetamines Screen MDMA (Ecstasy) Screen Benzodiazepines Screen Cocaine Screen U Marijuana (THC) Screen 04/25/18 04/25/18 04:51 04:51 WBC RBC Hgb Hct MCV MCH MCHC RDW Plt Count MPV Absolute Neuts (auto) Neutrophils % Lymphocytes % Monocytes % Eosinophils % Basophils % Nucleated RBC % Sodium Potassium Chloride Carbon Dioxide Anion Gap BUN Creatinine Creat Clearance w eGFR Random Glucose Calcium Total Bilirubin AST ALT Alkaline Phosphatase Total Protein Albumin Lipase Serum , Qual Urine Color Red Urine Appearance Slcloudy Urine pH 7.0 Ur Specific [place] 1.008 L Urine Protein 2+ H Urine Glucose (UA) Negative Urine Ketones Negative Urine Blood 3+ H Urine Nitrite Negative Urine Bilirubin Negative Urine Urobilinogen Negative Ur Leukocyte Esterase Negative Urine WBC (Auto) 122 Urine RBC (Auto) 2129 Ur Epithelial Cells Rare Calcium Oxalate Crystal Many Urine Bacteria Rare Opiates Screen Positive A* Methadone Screen Negative Barbiturate Screen Negative Phencyclidine Screen Negative Ur Amphetamines Screen Negative MDMA (Ecstasy) Screen Negative Benzodiazepines Screen Negative Cocaine Screen Positive A* U Marijuana (THC) Screen Negative ASSESSMENT/PLAN: Patient is a 37 year old female with history of nephrolithiasis, s/p lithotripsy and renal stents, anxiety, depression presents with complaint of right flank pain. ESBL resistant acute complicated urinary tract infection -Patient complains of hematuria, dysuria. Right sided CVA tenderness upon exam. -Urine culture (04/22) shows ESBL resistant klebsiella. -Patient received Meropenem 500mg IV in ED -Ertapenem 1gram daily -ID consult (Dr. Henderson) -Tylenol 1000mg PO Q6H -Tramadol 50mg PO BID PRN -F/U CT abdomen/ pelvis without contrast -F/U urine cultures -F/U blood cultures Anxiety, depression -Will reinstate home medications Seroquel 200mg PO daily Sertaline 50mg PO daily Clonazepam 0.5mg PO TID PRN FEN -IV normal saline at 75mL/ hour -Follow CMP -Regular diet Prophylaxis -Heparin 5000u subq TID Disposition -Admit to medical surgical floor Visit type - Emergency Visit Emergency Visit: Yes Care time: The patient presented to the Emergency Department on the above date and was hospitalized for further evaluation of their emergent condition. - New Patient This patient is new to me today: Yes Date on this admission: 04/25/18 - Critical Care Critical Care patient: No
[2018-04-25] MEDS ORDERED: traMADol HCL 50 MG TABLET PO PRN (06:26)
[2018-04-25] MEDS ORDERED: ACETAMINOPHEN 500 MG TABLET (FP) PO PRN (06:26)
--- NOTE | 2018-04-25 06:43 | PN ---
Teaching Attending Note Name of Resident: Lacy Maki ATTENDING PHYSICIAN STATEMENT I saw and evaluated the patient. I reviewed the resident's note and discussed the case with the resident. I agree with the resident's findings and plan as documented. SUBJECTIVE: Seen and examined; she is a 37 y/o HF with a PMH as documented but significant for renal stones s/p stents/lithotripsies who presents to the ER after being told she is growing out ESBL positive klebsiella from a prior ER visit on . She is hemodynamically stable and afebrile. She is complaining of pain in her R-flank that radiates throughout her entire R-side. Pain isn't made better or worse with anything. Has been to various facilities over the last 3 months for treatment for repeated UTIs. She has been having some dysuria, as well. She is unsure what all the abx have been though she tells me that she has been on Amoxicillin. She does have a history of renal stones; no hydronephrosis and no significant findings on renal/vaginal US done 3 days ago. No white count. She will require tx for ESBL UTI and ID consultation. PMH: Per EMR PSH: No procedures Social: Denies current etoh, tobacco, drug abuse. Documented psych hx. Does have +UDS FH: Asked and noncontributory OBJECTIVE: VSS, labs and imaging reviewed NAD, resting in bed, AAO RRR s1/2 no mgr Lungs CTAB with sym exp NT ND +BS anterior; back with pain to fist percussion of R-cva NC AT [facility] PERRLA ASSESSMENT AND PLAN: 1) ESBL+ UTI -04/22 Ucx growing out MDR K. pneumoniae sn. to carbepenems. She is not clinically septic. -Given her history and amount of pain, though she had a US of her b/l renal area 04/22 a stone could have escaped the window of view. Given her PMH, she is at risk for obstructive uropathy. Checking a non-contrast CT to r/o stones or hydro -Ertapenem QD, ID consult. -Monitor CBC, VS 2) Polysubstance abuse -Denies but +UDS -Discuss with her when other issues resolve. 3) Depression/Anxiety -She needs to have med list finished with being reconciled, then we may continue those medications. 4) Obesity -Director Content Marketing when clinically appropriate Full Code
[2018-04-25 10:24] LABS: HEMATOCRIT 28.2 % (32.4-45.2); HEMOGLOBIN 9.1 GM/dL (10.7-15.3); MCH 25.8 pg (25.7-33.7); MCHC 32.2 g/dl (32.0-36.0); MEAN CELL VOLUME 80.2 fl (80-96); MEAN PLT VOLUME 7.4 fl (7.5-11.1); PLATELET COUNT 225 K/MM3 (134-434); RBC 3.52 M/mm3 (3.60-5.2); RDW 15.9 % (11.6-15.6); WHITE BLOOD COUNT 4.5 K/mm3 (4.0-10.0)
[2018-04-25 10:52] LABS: ALBUMIN 3.5 g/dl (3.4-5.0); ALK PHOS 114 U/L (45-117); ANION GAP 5 MMOL/L (8-16); BILIRUBIN,TOTAL 0.3 mg/dL (0.2-1); BLOOD UREA NITROGEN 8 mg/dL (7-18); CALCIUM 8.5 mg/dL (8.5-10.1); CHLORIDE 110 mmol/L (98-107); CO2 27 mmol/L (21-32); CREATININE 0.8 mg/dL (0.55-1.3); GLUCOSE,RANDOM 107 mg/dL (74-106); PHOSPHOROUS 3.3 mg/dL (2.5-4.9); POTASSIUM 3.8 mmol/L (3.5-5.1); SGOT/AST 22 U/L (15-37); SGPT/ALT 30 U/L (13-61); SODIUM 142 mmol/L (136-145); TOT PROT 6.7 g/dl (6.4-8.2)
--- NOTE | 2018-04-25 11:27 | EKG ---
Test Reason : Blood Pressure : / mmHG Vent. Rate : 095 BPM Atrial Rate : 095 BPM P-R Int : 156 ms QRS Dur : 078 ms QT Int : 400 ms P-R-T Axes : 062 015 042 degrees QTc Int : 502 ms NORMAL SINUS RHYTHM CANNOT RULE OUT ANTERIOR INFARCT , AGE UNDETERMINED PROLONGED QT ABNORMAL ECG NO PREVIOUS ECGS AVAILABLE Confirmed by SHAMIR WILLIAMSON MD ([id number]) on 04/25/2018 11:26:46 AM Referred By: Confirmed By:SHAMIR WILLIAMSON MD
[2018-04-25] MEDS ORDERED: ERTAPENEM SODIUM 1 GM/50 ML PRE-DOCKED IVPB SCH (12:00)
[2018-04-25] MEDS ORDERED: ERTAPENEM SODIUM 1 GM in SODIUM CHLORIDE 50 ML IVPB SCH (12:00)
[2018-04-25] MEDS ORDERED: HEPARIN NA (PORCINE) 5,000 UNITS/ML 1ML VIAL SQ SCH (14:00)
--- NOTE | 2018-04-25 15:17 | CON.ID ---
Consult Consult Specialty:: infectious disease Referred by:: hospitalist Reason for Consultation:: UTI- drug resistant - History of Present Illness Chief Complaint: call back for urine culture History of Present Illness: 37 yo female history of recurrent UTI- poor historian many versions of recent hospitalizations to me she states she was hospitalized 6 days at [place] after 3 ER visits for nausea/vomiting/dysuria and right flank pain got discharged on amox and came to the ED here the next day with the same complaints sonogram wnl on 04/22, urine culture with klebsiella esbl and enterococcus she was called back currently on ertapenem reports continued flank pain no fevers in the hospital on 02/20 or today but she reports fever at night has had daily vaginal bleeding and is being evaluatied as outpt by urology +urine tox for opiates and cocaine constipation no children lives with - History Source History Provided By: Patient, Significant Other Limitations to Obtaining History: Poor Historian - Past Medical History Hepatobiliary: Yes: Cholelithiasis Renal/: Yes: Renal Calculi, UTI ...LMP: 04/02/18 Psych: Yes: Anxiety, Depression Additional Medical History: obesity - Past Surgical History Past Surgical History: Yes: Cholecystectomy Additional Surgical History: history of renal stents in the past - Alcohol/Substance Use Hx Alcohol Use: No History of Substance Use: reports: None - Smoking History Smoking history: Never smoked Have you smoked in the past 12 months: No - Social History Usual Living Arrangement: With Significant Other ADL: Independent History of Recent Travel: Yes Home Medications - Allergies Allergies/Adverse Reactions: Allergies Allergy/AdvReac Type Severity Reaction Status Date / Time ketorolac [From Toradol] Allergy Intermediate Rash Verified 04/25/18 01:32 Fish Containing Products Allergy Verified 04/25/18 01:32 NSAIDS (Non-Steroidal Allergy Verified 04/25/18 01:32 Anti-Inflamma - Home Medications Home Medications: Ambulatory Orders Clonazepam 0.5 mg PO TID 02/28/18 Propranolol HCl 80 mg PO DAILY 02/28/18 Quetiapine Fumarate [Seroquel -] 200 mg PO HS 02/28/18 Sertraline HCl 50 mg PO DAILY 02/28/18 Vortioxetine Hydrobromide [Trintellix] 10 mg PO DAILY 02/28/18 Cephalexin [Keflex] 500 mg PO BID 5 Days #10 capsule 04/22/18 Ondansetron HCl [Zofran] 4 mg PO DAILY PRN #3 tablet 04/22/18 Phenazopyridine HCl [Pyridium -] 100 mg PO PC 3 Days #6 tablet 04/22/18 Ascorbate Calcium [Vitamin C] 500 mg PO DAILY 04/25/18 Review of Systems - Review of Systems Constitutional: reports: Fever HENT: reports: No Symptoms Gastrointestinal: reports: Constipation Genitourinary: reports: Burning, Dysuria, Vaginal Bleeding Physical Exam Vital Signs: Vital Signs Temperature 98 F 04/25/18 11:45 Pulse Rate 87 04/25/18 11:45 Respiratory Rate 20 04/25/18 11:45 Blood Pressure 122/65 04/25/18 11:45 O2 Sat by Pulse Oximetry (%) 100 04/25/18 11:45 Constitutional: Yes: Well Nourished, No Distress Eyes: Yes: Conjunctiva Clear, EOM Intact HENT: Yes: Atraumatic, Normocephalic. No: Thrush Neck: Yes: Supple, Trachea Midline Cardiovascular: Yes: Regular Rate and Rhythm Respiratory: Yes: Regular, CTA Bilaterally Gastrointestinal: Yes: Normal Bowel Sounds. No: Tenderness, Rebound ...Rectal Exam: Yes: Deferred Renal/: Yes: CVA Tenderness - Right Extremities: Yes: WNL Edema: No Neurological: Yes: Alert, Oriented Labs: CBC, BMP 04/25/18 10:13 04/25/18 10:13 urine tox with opiates and cocaine Imaging - Results Cat Scan: Report Reviewed (right breast mass) Problem List - Problems (1) Infection due to ESBL-producing Klebsiella pneumoniae Code(s): A49.8 - OTHER BACTERIAL INFECTIONS OF UNSPECIFIED SITE; Z16.12 - EXTENDED SPECTRUM BETA LACTAMASE (ESBL) RESISTANCE (2) Vaginal bleeding Code(s): N93.9 - ABNORMAL UTERINE AND VAGINAL BLEEDING, UNSPECIFIED (3) Breast mass Code(s): N63.0 - UNSPECIFIED LUMP IN UNSPECIFIED BREAST (4) Substance use disorder Code(s): F19.90 - OTHER PSYCHOACTIVE SUBSTANCE USE, UNSPECIFIED, UNCOMPLICATED Assessment/Plan ertapenem- plan 10 to 14 days iv could add po amox for the enterococcus and stop it if repeat urine culture is negative for enterococcus gyne f/u for vaginal bleeding breast mass evaluation substance use referral
[2018-04-25 18:34] VITALS: BP 115/63; PULSE 88; TEMP 98.1
--- NOTE | 2018-04-25 19:20 | DS ---
Physical Exam: SUBJECTIVE: Patient seen and examined OBJECTIVE: Vital Signs Period Temp Pulse Resp BP Sys/Jorgensen Pulse Ox Last 24 Hr 98 F-99.2 F 78-88 18-20 102-177/63-73 98-100 PHYSICAL EXAM GENERAL: The patient is awake, alert, and fully oriented, in no acute distress. HEAD: Normal with no signs of trauma. EYES: PERRL, extraocular movements intact, sclera anicteric, conjunctiva clear. ENT: Ears normal, nares patent, oropharynx clear without exudates, moist mucous membranes. NECK: Trachea midline, full range of motion, supple. LUNGS: Breath sounds equal, clear to auscultation bilaterally, no wheezes, no crackles, no accessory muscle use. HEART: Regular rate and rhythm, S1, S2 without murmur, rub or gallop. ABDOMEN: Soft, nontender, nondistended, normoactive bowel sounds, no guarding, no rebound, no hepatosplenomegaly, no masses. EXTREMITIES: 2+ pulses, warm, well-perfused, no edema. NEUROLOGICAL: Cranial nerves II through XII grossly intact. Normal speech, gait not observed. PSYCH: Normal mood, normal affect. SKIN: Warm, dry, normal turgor, no rashes or lesions noted. LABS Laboratory Results - last 24 hr 04/25/18 04/25/18 04/25/18 03:20 03:30 03:30 WBC 5.4 RBC 4.03 Hgb 10.4 L Hct 32.2 L MCV 79.7 L MCH 25.8 MCHC 32.4 RDW 15.9 H Plt Count 307 D MPV 7.3 L Absolute Neuts (auto) 3.8 Neutrophils % 69.8 Lymphocytes % 20.7 D Monocytes % 5.7 Eosinophils % 3.4 Basophils % 0.4 Nucleated RBC % 0 Sodium 139 Potassium 4.3 Chloride 107 Carbon Dioxide 22 Anion Gap 9 BUN 8 Creatinine 0.7 Creat Clearance w eGFR > 60 Random Glucose 85 Calcium 8.8 Phosphorus Magnesium Total Bilirubin 0.2 AST 35 ALT 34 Alkaline Phosphatase 126 H Total Protein 8.0 Albumin 4.1 Lipase 122 Serum , Qual Negative Urine Color Urine Appearance Urine pH Ur Specific [place] Urine Protein Urine Glucose (UA) Urine Ketones Urine Blood Urine Nitrite Urine Bilirubin Urine Urobilinogen Ur Leukocyte Esterase Urine WBC (Auto) Urine RBC (Auto) Ur Epithelial Cells Calcium Oxalate Crystal Urine Bacteria Opiates Screen Methadone Screen Barbiturate Screen Phencyclidine Screen Ur Amphetamines Screen MDMA (Ecstasy) Screen Benzodiazepines Screen Cocaine Screen U Marijuana (THC) Screen 04/25/18 04/25/18 04/25/18 04:51 04:51 10:13 WBC 4.5 RBC 3.52 L Hgb 9.1 L Hct 28.2 L MCV 80.2 MCH 25.8 MCHC 32.2 RDW 15.9 H Plt Count 225 D MPV 7.4 L Absolute Neuts (auto) Neutrophils % Lymphocytes % Monocytes % Eosinophils % Basophils % Nucleated RBC % Sodium Potassium Chloride Carbon Dioxide Anion Gap BUN Creatinine Creat Clearance w eGFR Random Glucose Calcium Phosphorus Magnesium Total Bilirubin AST ALT Alkaline Phosphatase Total Protein Albumin Lipase Serum , Qual Urine Color Red Urine Appearance Slcloudy Urine pH 7.0 Ur Specific [place] 1.008 L Urine Protein 2+ H Urine Glucose (UA) Negative Urine Ketones Negative Urine Blood 3+ H Urine Nitrite Negative Urine Bilirubin Negative Urine Urobilinogen Negative Ur Leukocyte Esterase Negative Urine WBC (Auto) 122 Urine RBC (Auto) 2129 Ur Epithelial Cells Rare Calcium Oxalate Crystal Many Urine Bacteria Rare Opiates Screen Positive A* Methadone Screen Negative Barbiturate Screen Negative Phencyclidine Screen Negative Ur Amphetamines Screen Negative MDMA (Ecstasy) Screen Negative Benzodiazepines Screen Negative Cocaine Screen Positive A* U Marijuana (THC) Screen Negative 04/25/18 10:13 WBC RBC Hgb Hct MCV MCH MCHC RDW Plt Count MPV Absolute Neuts (auto) Neutrophils % Lymphocytes % Monocytes % Eosinophils % Basophils % Nucleated RBC % Sodium 142 Potassium 3.8 Chloride 110 H Carbon Dioxide 27 Anion Gap 5 L BUN 8 Creatinine 0.8 Creat Clearance w eGFR > 60 Random Glucose 107 H Calcium 8.5 Phosphorus 3.3 Magnesium 2.0 Total Bilirubin 0.3 AST 22 ALT 30 Alkaline Phosphatase 114 Total Protein 6.7 Albumin 3.5 Lipase Serum , Qual Urine Color Urine Appearance Urine pH Ur Specific [place] Urine Protein Urine Glucose (UA) Urine Ketones Urine Blood Urine Nitrite Urine Bilirubin Urine Urobilinogen Ur Leukocyte Esterase Urine WBC (Auto) Urine RBC (Auto) Ur Epithelial Cells Calcium Oxalate Crystal Urine Bacteria Opiates Screen Methadone Screen Barbiturate Screen Phencyclidine Screen Ur Amphetamines Screen MDMA (Ecstasy) Screen Benzodiazepines Screen Cocaine Screen U Marijuana (THC) Screen HOSPITAL COURSE: Date of Admission:04/25/18 Date of Discharge: 04/25/18 Minutes to complete discharge: 35 Discharge Summary Reason For Visit: PYELONEPHRITIS Current Active Problems Breast mass (Acute) Infection due to ESBL-producing Klebsiella pneumoniae (Acute) Pyelonephritis (Acute) Substance use disorder (Acute) Vaginal bleeding (Acute) Condition: Improved - Instructions Diet, Activity, Other Instructions: You have been diagnosed with a urinary tract infection requiring intravenous antibiotic therapy. Starting tomorrow, April 26, please report daily to the 7th floor infusion center at this [facility] between the hours of 9am and 5pm. You will be given a daily infusion of an antibiotic for 10-14 days. Each day a peripheral IV will be placed, you will receive the medication, and the IV will be taken out. This process will be repeated for 10-14 days when your treatment will be complete. You have a breast mass which was seen on imaging today. This requires outpatient followup. 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 Or, you may call the [facility] in [place] at and ask for the next available appointment. Referrals: Jacques Lowery MD [Staff Physician] - Disposition: HOME - Home Medications Comprehensive Discharge Medication List: Ambulatory Orders Clonazepam 0.5 mg PO TID 02/28/18 Propranolol HCl 80 mg PO DAILY 02/28/18 Quetiapine Fumarate [Seroquel -] 200 mg PO HS 02/28/18 Sertraline HCl 50 mg PO DAILY 02/28/18 Vortioxetine Hydrobromide [Trintellix] 10 mg PO DAILY 02/28/18 Ondansetron HCl [Zofran] 4 mg PO DAILY PRN #3 tablet 04/22/18 Phenazopyridine HCl [Pyridium -] 100 mg PO PC 3 Days #6 tablet 04/22/18 Ascorbate Calcium [Vitamin C] 500 mg PO DAILY 04/25/18 This patient is new to me today: Yes Date on this admission: 04/25/18 Emergency Visit: Yes ED Registration Date: 04/25/18 Care time: The patient presented to the Emergency Department on the above date and was hospitalized for further evaluation of their emergent condition. Critical Care patient: No - Discharge Referral Referred to [facility] Med P.C.: No
== END 2018-04-25 18:52 | disposition home or self-care (01) | DRG 463 ==
LOC: JER 23:56 → JERBED 04-25 04:52
PROVIDERS: ADMIT Internal Medicine; ATTEND Nurse Practitioner Acute Care
DX: N10 Acute pyelonephritis (principal); B96.1 Klebsiella pneumoniae [K. pneumoniae] as the cause of diseases classified elsewhere; Z16.12 Extended spectrum beta lactamase (ESBL) resistance; N63.0 Unspecified lump in unspecified breast; N93.9 Abnormal uterine and vaginal bleeding, unspecified; F41.8 Other specified anxiety disorders; F11.10 Opioid abuse, uncomplicated; F14.10 Cocaine abuse, uncomplicated; F19.90 Other psychoactive substance use, unspecified, uncomplicated
CPT/HCPCS: 36415; 74176-TC; 80053; 80307; 81003; 81015; 83690; 83735; 84100; 84703; 85025; 85027; 87040; 87086; 93005; 93010; 99284-25; J7030